=== PATIENT | male | born 1940 | race Caucasian/White ===

== ENCOUNTER → 2017-02-06 | Outpatient (CLI) | payer MEDICARE, OTHER ==
[~2017-02-06] MED LIST: ALBUTEROL SULF 2.5 MG/0.5ML(0.5%) NEB SOLN ONE; AMLO10TA2; ATOR40TA52; BENA20TA4; BETA0.0534; CARV3.1240; CLOP75TA41
== END | disposition home or self-care (01) ==
LOC: RT 08:32
PROVIDERS: ATTEND Internal Medicine Pulmonary Disease
DX: J84.112 Idiopathic pulmonary fibrosis (principal)
CPT/HCPCS: 94060

== ENCOUNTER → 2017-02-12 | Outpatient (CLI) | payer MEDICARE, OTHER ==
[~2017-02-12] MED LIST changes: -ALBUTEROL SULF 2.5 MG/0.5ML(0.5%) NEB SOLN ONE
[2017-02-12 17:14] LABS: Albumin 3.4 g/dL (3.4-5.0); Bilirubin, Direct 0.1 mg/dL (0-0.2); Bilirubin, Total 0.3 mg/dL (0.2-1.0); Total Protein 7.6 g/dL (6.4-8.2)
== END | disposition home or self-care (01) ==
LOC: LAB 16:33
PROVIDERS: ATTEND Internal Medicine Pulmonary Disease
DX: J84.112 Idiopathic pulmonary fibrosis (principal)
CPT/HCPCS: 36415; 80076

== ENCOUNTER 2017-08-03 10:44 | Inpatient (IN) | payer MEDICARE, OTHER ==
[~2017-08-03] VITALS: Ht 182.9 cm; Wt 88.9 kg
[~2017-08-03 10:44] MED LIST changes: +BENA20TA14; -BENA20TA4
[2017-08-03 11:35] LABS: Basophils # (auto) 0 uL; Basophils % (auto) 0.2 % (0.0-2.0); CONDITION Y; Eosinophils # (auto) 0.2 uL; Eosinophils % (auto) 1.9 % (0.0-7.0); Hemoglobin 16.8 g/dL (13.5-17.5); Lymphocytes % (auto) 11.7 % (10.0-50.0); Mean Corpuscular Hemoglobin 32.2 pg (28.0-32.0); Mean Corpuscular Hgb Conc. 34.2 g/dL (32.0-36.0); Mean Corpuscular Volume 94.1 fL (80.0-100.0); Mean Platelet Volume 7.9 fL (6.9-10.8); Monocytes # (auto) 0.7 uL; Neutrophils # (auto) 6.8 uL; Neutrophils % (auto) 78.2 % (37.0-80.0); Platelet Count (auto) 197 10^3/uL (140-450); Red Cell Distribution Width 14.8 % (11.8-14.3); White Blood Cell 8.7 10^3/uL (4.4-10.8)
[2017-08-03 11:50] LABS: Albumin 3.1 g/dL (3.4-5.0); BUN/Creatinine Ratio 18.7; Bilirubin, Total 0.6 mg/dL (0.2-1.0); Calcium 8.8 mg/dL (8.5-10.1); Potassium 4.1 mmol/L (3.5-5.1); Total Protein 8.2 g/dL (6.4-8.2)
[2017-08-03] MEDS ORDERED: SODIUM CHLORIDE 0.9% 1,000 ML IVB ONE (15:05)
[2017-08-03] MEDS ORDERED: cefTRIAXone 1GM/50ML D5W 50 ML IV ONE (15:15)
[2017-08-03 15:40] LABS: INR 0.98 (0.9-1.15); Partial Thromboplastin Time 26.8 sec (22.64-33.71); Prothrombin Time 10.7 sec (9.37-12.3)
[2017-08-03 17:06] LABS: Urine RBC None Seen /hpf (0 - 3)
[2017-08-03 17:35] LABS: Urine Bilirubin Negative (Negative); Urine Blood Negative /uL (Negative); Urine Color Yellow (Yellow); Urine Glucose Normal (Normal); Urine Ketone 1+ (Negative); Urine Mucus FEW (None Seen); Urine Nitrite Negative (Negative); Urine Urobilinogen Normal (Negative); Urine pH 6.5 (5.0-8.0)
[2017-08-03] MEDS ORDERED: AZITHROMYCIN 500MG/D5W 250ML 250 ML IV ONE (19:30)
[2017-08-03] MEDS ORDERED: DOCUSATE SOD 100 MG CAP PO PRN (19:45)
[2017-08-03] MEDS ORDERED: ONDANSETRON HCL 4 MG/2 ML VIAL IV PRN (19:45)
[2017-08-03] MEDS ORDERED: TEMAZEPAM 15 MG CAP PO PRN (19:45)
[2017-08-03] MEDS ORDERED: DEXTROSE (50%) 50ML SYRG IV PRN (19:45)
[2017-08-03] MEDS ORDERED: ACETAMINOPHEN 325 MG TAB PO PRN (19:45)
[2017-08-03] MEDS ORDERED: MORPHINE SULF INJ 2 MG/ML SYRINGE 1ML IV PRN (19:45)
[2017-08-03] MEDS ORDERED: HYDROcodone-ACET 5/325MG TAB PO PRN (19:45)
[2017-08-03] MEDS ORDERED: ALBUTEROL SULF 2.5 MG/0.5ML(0.5%) NEB SOLN NEB PRN (20:00)
[2017-08-03 20:47] LABS: B-Type Natriuretic Peptide 33.6 pg/mL (0-100); Temperature: 22.5 C (20.0-25.0)
[2017-08-03 21:45] VITALS: BP 153/81
[2017-08-03] MEDS: ACCU-CHEK COMFORT CURVE STRIP VI SCH (22:00)
[2017-08-03] MEDS: InsuLIN REG 1unit/0.01ml Soln (100units/ml) SC SCH (22:00)
[2017-08-03] MEDS ORDERED: PATIENTS OWN MEDICATION PO SCH ×2 (22:00)
[2017-08-03] MEDS ORDERED: ATORVASTATIN 20 MG TAB PO SCH (22:00)
[2017-08-03] MEDS: SODIUM CHLOR 0.9% PF (SALINE LOCK) 10ML VIAL IV SCH (22:29)
[2017-08-03] MEDS: GABAPENTIN 300 MG CAP PO SCH (22:30)
[2017-08-03] MEDS: CARVEDILOL 3.125 MG TAB PO SCH (22:30)
[2017-08-03] MEDS ORDERED: AMLO5TAB2 PO (23:10)
[2017-08-03] MEDS ORDERED: BENA20TA14 PO (23:10)
[2017-08-03] MEDS ORDERED: ASPI325T25 PO (23:10)
[2017-08-03] MEDS ORDERED: GABA-497 PO (23:10)
[2017-08-03] MEDS ORDERED: [UNRECOGNIZED DRUG - CODE] PO (23:10)
[2017-08-03] MEDS ORDERED: CARV3.1240 PO (23:10)
[2017-08-03] MEDS ORDERED: ATOR40TA52 PO (23:10)
[2017-08-03 23:19] VITALS: BP 153/81
[2017-08-04 04:53] VITALS: BP 110/60
[2017-08-04] MEDS ORDERED: MORPHINE SULF INJ 2 MG/ML SYRINGE 1ML IV PRN (05:30)
[2017-08-04] MEDS: SODIUM CHLOR 0.9% PF (SALINE LOCK) 10ML VIAL IV SCH (05:38)
[2017-08-04] MEDS: GABAPENTIN 300 MG CAP PO SCH (05:39)
[2017-08-04 05:48] LABS: Basophils # (auto) 0 uL; Basophils % (auto) 0.3 % (0.0-2.0); CONDITION Y; Eosinophils # (auto) 0.3 uL; Eosinophils % (auto) 3.3 % (0.0-7.0); Hematocrit 42.5 % (41.0-53.0); Hemoglobin 14.6 g/dL (13.5-17.5); Lymphocytes # (auto) 1.7 uL; Lymphocytes % (auto) 17.8 % (10.0-50.0); Mean Corpuscular Hemoglobin 32.5 pg (28.0-32.0); Mean Corpuscular Hgb Conc. 34.4 g/dL (32.0-36.0); Mean Corpuscular Volume 94.6 fL (80.0-100.0); Mean Platelet Volume 8.1 fL (6.9-10.8); Monocytes # (auto) 1.1 uL; Monocytes % (auto) 11.7 % (0.0-12.0); Neutrophils # (auto) 6.5 uL; Neutrophils % (auto) 66.9 % (37.0-80.0); Platelet Count (auto) 177 10^3/uL (140-450); Red Cell Distribution Width 14.6 % (11.8-14.3); White Blood Cell 9.7 10^3/uL (4.4-10.8)
[2017-08-04] MEDS ORDERED: PIRFENIDONE 267 MG PO SCH ×2 (06:00→14:00)
[2017-08-04] MEDS: InsuLIN REG 1unit/0.01ml Soln (100units/ml) SC SCH (06:21)
[2017-08-04] MEDS: ACCU-CHEK COMFORT CURVE STRIP VI SCH (06:21)
[2017-08-04 06:24] LABS: Albumin 2.6 g/dL (3.4-5.0); BUN/Creatinine Ratio 29.4; Bilirubin, Total 0.6 mg/dL (0.2-1.0); Calcium 8.4 mg/dL (8.5-10.1); Total Protein 6.9 g/dL (6.4-8.2)
[2017-08-04] MEDS ORDERED: Boost Glucose Control 8 Ounces PO SCH (08:00)
[2017-08-04 09:00] VITALS: BP_SYST 125; BP_SYST 139; BP_DIAS 75; BP_DIAS 78
[2017-08-04] MEDS ORDERED: cefTRIAXone 1GM/50ML D5W 50 ML IV SCH (09:00)
[2017-08-04] MEDS ORDERED: ASPirin-EC 325mg tab PO SCH (10:00)
[2017-08-04] MEDS ORDERED: AZITHROMYCIN 500MG/D5W 250ML 250 ML IV SCH (10:00)
[2017-08-04] MEDS ORDERED: amLODIPine BESYLATE 5 MG TAB PO SCH (10:00)
[2017-08-04] MEDS ORDERED: BENAZEPRIL HCL 10 MG TAB PO SCH (10:00)
[2017-08-04] MEDS ORDERED: MULTIPLE VITAMIN TAB PO SCH (10:00)
[2017-08-04] MEDS: CARVEDILOL 3.125 MG TAB PO SCH (10:26)
[2017-08-04] MEDS ORDERED: AZITHROMYCIN 250 MG TAB PO ONE (11:15)
== END 2017-08-04 13:30 | disposition home or self-care (01) | DRG 871 ==
LOC: ER 10:44 → OVERFLOW 10:45 → EAST 21:56
PROVIDERS: ADMIT Internal Medicine; ATTEND Internal Medicine
DX: A41.9 Sepsis, unspecified organism (principal); J18.9 Pneumonia, unspecified organism; E44.0 Moderate protein-calorie malnutrition; E11.65 Type 2 diabetes mellitus with hyperglycemia; J84.10 Pulmonary fibrosis, unspecified; J98.11 Atelectasis; Z68.26 Body mass index [BMI] 26.0-26.9, adult; I10 Essential (primary) hypertension; M19.90 Unspecified osteoarthritis, unspecified site; F17.200 Nicotine dependence, unspecified, uncomplicated; E78.5 Hyperlipidemia, unspecified; Z90.49 Acquired absence of other specified parts of digestive tract; Z88.5 Allergy status to narcotic agent
CPT/HCPCS: 36415; 71020; 80053; 81001; 82962; 83036; 83605; 83735; 83880; 84443; 84484; 85025; 85610; 85730; 87040; 93005; 94640; 94761; 96365; 96366; 96375; J0696

== ENCOUNTER → 2017-08-13 | Outpatient (CLI) | payer MEDICARE, OTHER ==
[~2017-08-13] MED LIST changes: +ALBUTEROL SULF 2.5 MG/0.5ML(0.5%) NEB SOLN ONE; -AMLO10TA2; +AMLO5TAB2 PO; +ASPI325T25 PO; -ATOR40TA52; +ATOR40TA52 PO; -BENA20TA14; +BENA20TA14 PO; -BETA0.0534; -CARV3.1240; +CARV3.1240 PO; -CLOP75TA41; +GABA-497 PO; +[UNRECOGNIZED DRUG - CODE] PO
== END | disposition home or self-care (01) ==
LOC: RT 08:30
PROVIDERS: ATTEND Internal Medicine Pulmonary Disease
DX: J84.112 Idiopathic pulmonary fibrosis (principal)
CPT/HCPCS: 94060

== ENCOUNTER → 2017-10-15 | Outpatient (CLI) | payer MEDICARE ==
[~2017-10-15] MED LIST changes: -ALBUTEROL SULF 2.5 MG/0.5ML(0.5%) NEB SOLN ONE
[2017-10-15 16:18] LABS: Albumin 3.5 g/dL (3.4-5.0); Bilirubin, Direct 0.1 mg/dL (0-0.2); Bilirubin, Total 0.3 mg/dL (0.2-1.0)
== END | disposition home or self-care (01) ==
LOC: LAB 15:19
PROVIDERS: ATTEND Internal Medicine Pulmonary Disease
DX: J84.112 Idiopathic pulmonary fibrosis (principal)
CPT/HCPCS: 36415; 80076

== ENCOUNTER → 2017-11-27 | Outpatient (CLI) | payer MEDICARE ==
[~2017-11-27] MED LIST changes: -GABA-497 PO; +GABA300C10 PO
[2017-11-27 16:56] LABS: Albumin 3.6 g/dL (3.4-5.0); Bilirubin, Direct 0.3 mg/dL (0-0.2); Bilirubin, Total 0.6 mg/dL (0.2-1.0); Total Protein 8.3 g/dL (6.4-8.2)
== END | disposition home or self-care (01) ==
LOC: LAB 15:58
PROVIDERS: ATTEND Internal Medicine Pulmonary Disease
DX: J84.10 Pulmonary fibrosis, unspecified (principal)
CPT/HCPCS: 36415; 80076

== ENCOUNTER → 2018-02-20 | Outpatient (CLI) | payer MEDICARE | END | disposition home or self-care (01) | LOC: LAB 15:19 | PROVIDERS: ATTEND Internal Medicine Pulmonary Disease | DX: J84.112 Idiopathic pulmonary fibrosis (principal); E11.9 Type 2 diabetes mellitus without complications; I10 Essential (primary) hypertension; M06.9 Rheumatoid arthritis, unspecified; E78.5 Hyperlipidemia, unspecified; Z79.899 Other long term (current) drug therapy | CPT/HCPCS: 36415 ==

== ENCOUNTER → 2018-02-25 | Outpatient (CLI) | payer MEDICARE ==
[2018-02-25 14:20] LABS: Albumin 3.3 g/dL (3.4-5.0); Bilirubin, Direct 0.2 mg/dL (0-0.2); Bilirubin, Total 0.5 mg/dL (0.2-1.0); Total Protein 8.1 g/dL (6.4-8.2)
== END | disposition home or self-care (01) ==
LOC: LAB 13:45
PROVIDERS: ATTEND Internal Medicine Pulmonary Disease
DX: J84.112 Idiopathic pulmonary fibrosis (principal); I10 Essential (primary) hypertension; E78.5 Hyperlipidemia, unspecified; E11.9 Type 2 diabetes mellitus without complications; M06.9 Rheumatoid arthritis, unspecified; Z79.899 Other long term (current) drug therapy
CPT/HCPCS: 36415; 80076

== ENCOUNTER → 2018-03-23 | Outpatient (CLI) | payer MEDICARE ==
[~2018-03-23] MED LIST changes: +ALBUTEROL SULF 2.5 MG/0.5ML(0.5%) NEB SOLN ONE
== END | disposition home or self-care (01) ==
LOC: RT 08:34
PROVIDERS: ATTEND Internal Medicine Pulmonary Disease
DX: J84.112 Idiopathic pulmonary fibrosis (principal); I10 Essential (primary) hypertension; E78.5 Hyperlipidemia, unspecified; M06.9 Rheumatoid arthritis, unspecified; E11.9 Type 2 diabetes mellitus without complications; Z79.899 Other long term (current) drug therapy
CPT/HCPCS: 94060; 94640

== ENCOUNTER → 2018-09-17 | Outpatient (CLI) | payer MEDICARE ==
[~2018-09-17] MED LIST changes: +AMLO5TAB13 PO; -AMLO5TAB2 PO
== END | disposition home or self-care (01) ==
LOC: RT 08:25
PROVIDERS: ATTEND Internal Medicine Pulmonary Disease
DX: J84.112 Idiopathic pulmonary fibrosis (principal)
CPT/HCPCS: 94060; J7611

== ENCOUNTER → 2019-04-23 | Outpatient (CLI) | payer MEDICARE | END | disposition home or self-care (01) | LOC: RT 08:01 | PROVIDERS: ATTEND Internal Medicine Pulmonary Disease | DX: J84.112 Idiopathic pulmonary fibrosis (principal) | CPT/HCPCS: 94060; J7611 ==

== ENCOUNTER 2020-02-18 10:43 | Inpatient (IN) | payer MEDICARE, SELFPAY ==
[~2020-02-18] VITALS: Ht 182.9 cm; Wt 96.5 kg
[~2020-02-18 10:43] MED LIST changes: -ALBUTEROL SULF 2.5 MG/0.5ML(0.5%) NEB SOLN ONE; -AMLO5TAB13 PO; +AMLO5TAB15 PO
[2020-02-18 11:14] LABS: Basophils # (auto) 0 10 ^3/uL (0-0.2); Basophils % (auto) 0.3 % (0.0-2.0); Eosinophils # (auto) 0.1 10 ^3/uL (0-0.8); Eosinophils % (auto) 1.3 % (0.0-7.0); Hematocrit 43.4 % (41.0-53.0); Lymphocytes # (auto) 0.8 10 ^3/uL (0.4-5.4); Lymphocytes % (auto) 9.2 % (10.0-50.0); Mean Corpuscular Hemoglobin 32.8 pg (28.0-32.0); Mean Corpuscular Hgb Conc. 34.5 g/dL (32.0-36.0); Mean Corpuscular Volume 95.2 fL (80.0-100.0); Monocytes # (auto) 0.9 10 ^3/uL (0-1.3); Monocytes % (auto) 10.3 % (0.0-12.0); Neutrophils # (auto) 6.7 10 ^3/uL (1.6-8.6); Neutrophils % (auto) 78.9 % (37.0-80.0); Nucleated Red Blood Cells % 0.2 %; Platelet Count (auto) 150 10^3/uL (140-450); Red Blood Cells 4.56 10^6/uL (4.5-5.90); Red Cell Distribution Width 15.8 % (11.8-14.3); White Blood Cell 8.5 10^3/uL (4.4-10.8)
[2020-02-18] MEDS ORDERED: levoFLOXacin 500MG 100 ML IV ONE (11:15)
[2020-02-18 11:34] LABS: Albumin 3.1 g/dL (3.4-5.0); Calcium 9.1 mg/dL (8.5-10.1); Potassium 3.4 mmol/L (3.5-5.1)
[2020-02-18 11:41] LABS: BUN/Creatinine Ratio 23.2; Bilirubin, Total 0.8 mg/dL (0.2-1.0); Total Protein 8.2 g/dL (6.4-8.2)
[2020-02-18 12:11] LABS: Lactic Acid w/Reflex 2.5 mmol/L (0.4-2.0)
[2020-02-18] MEDS ORDERED: ACETAMINOPHEN 500 MG TAB PO PRN (13:30)
[2020-02-18] MEDS ORDERED: VANCOMYCIN PER PHARMACY 0 MG IV SCH (13:30)
[2020-02-18] MEDS ORDERED: ONDANSETRON HCL 4 MG/2 ML VIAL IV PRN (13:30)
[2020-02-18] MEDS ORDERED: HYDROcodone-ACET 5/325MG TAB PO PRN ×2 (13:30→14:15)
[2020-02-18] MEDS ORDERED: NITROGLYCERIN 0.4 MG SL TAB SL PRN (13:30)
[2020-02-18] MEDS ORDERED: FUROSEMIDE 20 MG/2 ML VIAL IV SCH (13:30)
[2020-02-18] MEDS ORDERED: MORPHINE SULF INJ 2 MG/ML SYRINGE 1ML IV PRN ×4 (13:30→14:15)
[2020-02-18] MEDS ORDERED: FUROSEMIDE 100 MG/10ML VIAL IV SCH (14:00)
[2020-02-18] MEDS ORDERED: FUROSEMIDE 100 MG/10ML VIAL IV ONE (14:15)
[2020-02-18 14:37] LABS: CRP High Sensitivity 4.57 mg/dL (< 0.3)
[2020-02-18] MEDS ORDERED: AMLO5TAB15 PO (15:55)
[2020-02-18] MEDS ORDERED: ATOR40TA52 PO (15:55)
[2020-02-18] MEDS ORDERED: METO-169 PO (15:55)
[2020-02-18] MEDS ORDERED: TAMS0.4C36 PO (15:55)
[2020-02-18] MEDS ORDERED: NINT1CAP2 PO (15:55)
[2020-02-18] MEDS ORDERED: POTA10TA51 PO (15:55)
[2020-02-18] MEDS ORDERED: HCTZ25T PO (15:55)
[2020-02-18] MEDS ORDERED: FURO20TA3 PO (15:55)
[2020-02-18] MEDS ORDERED: CHOL20007 PO (15:55)
[2020-02-18] MEDS ORDERED: ALBU1AER4 IN (15:55)
[2020-02-18] MEDS ORDERED: APIX5TAB PO (15:55)
[2020-02-18] MEDS: VANCOMYCIN 1GM/250ML 250 ML IV SCH (16:34)
[2020-02-18] MEDS: PIPERACILLIN-TAZOB 3.375GM 100 ML IV SCH (17:40)
[2020-02-18 20:00] VITALS: BP 126/69
[2020-02-18 20:30] VITALS: BP 126/69
[2020-02-18] MEDS ORDERED: TEMAZEPAM 15 MG CAP PO ONE (21:15)
[2020-02-19] MEDS: PIPERACILLIN-TAZOB 3.375GM 100 ML IV SCH ×4 (00:48→21:40)
[2020-02-19] MEDS: VANCOMYCIN 1GM/250ML 250 ML IV SCH ×2 (05:02→18:28)
[2020-02-19 06:00] VITALS: BP 110/50
[2020-02-19 06:58] LABS: Basophils # (auto) 0 10 ^3/uL (0-0.2); Basophils % (auto) 0.3 % (0.0-2.0); Eosinophils # (auto) 0.2 10 ^3/uL (0-0.8); Eosinophils % (auto) 3.2 % (0.0-7.0); Hematocrit 38.2 % (41.0-53.0); Hemoglobin 13.1 g/dL (13.5-17.5); Lymphocytes % (auto) 12.6 % (10.0-50.0); Mean Corpuscular Hemoglobin 32.9 pg (28.0-32.0); Mean Corpuscular Hgb Conc. 34.2 g/dL (32.0-36.0); Mean Corpuscular Volume 96.3 fL (80.0-100.0); Monocytes # (auto) 0.9 10 ^3/uL (0-1.3); Monocytes % (auto) 11.9 % (0.0-12.0); Neutrophils # (auto) 5.6 10 ^3/uL (1.6-8.6); Platelet Count (auto) 127 10^3/uL (140-450); Red Blood Cells 3.97 10^6/uL (4.5-5.90); Red Cell Distribution Width 15.7 % (11.8-14.3); White Blood Cell 7.8 10^3/uL (4.4-10.8)
[2020-02-19 07:25] LABS: BUN/Creatinine Ratio 18.9; Calcium 8.6 mg/dL (8.5-10.1); Potassium 3.3 mmol/L (3.5-5.1)
[2020-02-19 07:45] VITALS: BP 113/60
[2020-02-19 08:00] VITALS: BP 113/62
[2020-02-19] MEDS: CHOLECALCIFEROL (VITD3) 1,000IU=25mCg TAB PO SCH (09:12)
[2020-02-19] MEDS: ZINC SULFATE 220mg CAP or TAB PO SCH (09:12)
[2020-02-19] MEDS: FAMOTIDINE 20 MG TAB PO SCH (09:12)
[2020-02-19] MEDS ORDERED: AZITHROMYCIN 500MG/ 250ML 250 ML IV SCH (10:00)
[2020-02-19] MEDS ORDERED: ASCORBIC ACID 500 MG TAB PO SCH (10:00)
[2020-02-19] MEDS ORDERED: POTASSIUM CHL 20 Meq TABLET PO ONE ×2 (11:30)
[2020-02-19] MEDS ORDERED: FUROSEMIDE 20 MG/2 ML VIAL IV ONE (11:30)
[2020-02-19 12:00] VITALS: BP 126/63
[2020-02-19] MEDS: ASPirin-EC 81 mg tab PO SCH (12:26)
[2020-02-19] MEDS: ALBUTEROL SULF HFA 90MCG INH 200DOSE IN SCH ×2 (14:14→21:40)
[2020-02-19] MEDS: ENOXAPARIN SOD 40 MG/0.4 ML SYRINGE SC SCH (14:44)
[2020-02-19 15:00] VITALS: BP 126/63
[2020-02-19] MEDS ORDERED: FUROSEMIDE 40 MG/4 ML VIAL IV ONE (15:00)
[2020-02-19] MEDS: ATORVASTATIN 20 MG TAB PO SCH (21:40)
[2020-02-19] MEDS: METOPROLOL TARTRATE 25 MG TAB PO SCH (21:41)
[2020-02-19 21:43] VITALS: BP 112/63
[2020-02-20] VITALS (14 sets, daily range): BP systolic 114–140; BP diastolic 53–66
[2020-02-20] MEDS: PIPERACILLIN-TAZOB 3.375GM 100 ML IV SCH ×4 (01:58→21:39)
[2020-02-20] MEDS: ALBUTEROL SULF HFA 90MCG INH 200DOSE IN SCH (06:05)
[2020-02-20 06:32] LABS: Basophils # (auto) 0 10 ^3/uL (0-0.2); Basophils % (auto) 0.5 % (0.0-2.0); Eosinophils # (auto) 0.3 10 ^3/uL (0-0.8); Hematocrit 37.8 % (41.0-53.0); Hemoglobin 12.8 g/dL (13.5-17.5); Lymphocytes # (auto) 0.7 10 ^3/uL (0.4-5.4); Lymphocytes % (auto) 9.5 % (10.0-50.0); Mean Corpuscular Volume 96.9 fL (80.0-100.0); Monocytes % (auto) 13.5 % (0.0-12.0); Neutrophils # (auto) 5.3 10 ^3/uL (1.6-8.6); Neutrophils % (auto) 72.5 % (37.0-80.0); Nucleated Red Blood Cells % 0.1 %; Platelet Count (auto) 116 10^3/uL (140-450); White Blood Cell 7.3 10^3/uL (4.4-10.8)
[2020-02-20 06:52] LABS: Potassium 3.6 mmol/L (3.5-5.1)
[2020-02-20 07:08] LABS: Potassium 3.6 mmol/L (3.5-5.1)
[2020-02-20 07:40] LABS: INR 1.08 (0.9-1.15)
[2020-02-20 08:00] LABS: Bilirubin, Total 1.2 mg/dL (0.2-1.0)
[2020-02-20 08:01] LABS: Albumin 2.5 g/dL (3.4-5.0); BUN/Creatinine Ratio 18.6; Calcium 8.6 mg/dL (8.5-10.1)
[2020-02-20 08:03] LABS: Magnesium 2.1 mg/dL (1.6-2.6)
[2020-02-20] MEDS: FAMOTIDINE 20 MG TAB PO SCH (09:42)
[2020-02-20] MEDS: VANCOMYCIN 1GM/250ML 250 ML IV SCH ×2 (09:42→20:00)
[2020-02-20] MEDS: POTASSIUM CHL 20 Meq TABLET PO SCH (09:42)
[2020-02-20] MEDS: ASPirin-EC 81 mg tab PO SCH (09:42)
[2020-02-20] MEDS: ZINC SULFATE 220mg CAP or TAB PO SCH (09:42)
[2020-02-20] MEDS: METOPROLOL TARTRATE 25 MG TAB PO SCH ×2 (09:43→21:45)
[2020-02-20] MEDS: ENOXAPARIN SOD 40 MG/0.4 ML SYRINGE SC SCH (09:43)
[2020-02-20] MEDS: CHOLECALCIFEROL (VITD3) 1,000IU=25mCg TAB PO SCH (09:43)
[2020-02-20] MEDS ORDERED: FUROSEMIDE 40 MG/4 ML VIAL IV SCH (10:00)
[2020-02-20] MEDS ORDERED: FUROSEMIDE 20 MG/2 ML VIAL IV SCH (10:00)
[2020-02-20] MEDS ORDERED: ASCORBIC ACID 500 MG TAB PO SCH (10:00)
[2020-02-20] MEDS ORDERED: ALBUTEROL SULF 2.5 MG/0.5ML(0.5%) NEB SOLN NEB PRN (14:45)
[2020-02-20] MEDS ORDERED: IPRATROPIUM BROM 0.5 MG/2.5ML INH SOL NEB PRN (14:45)
[2020-02-20] MEDS: ALBUTEROL SULF 2.5 MG/0.5ML(0.5%) NEB SOLN NEB SCH ×3 (15:15→22:40)
[2020-02-20] MEDS: IPRATROPIUM BROM 0.5 MG/2.5ML INH SOL NEB SCH ×3 (15:15→22:40)
[2020-02-20] MEDS: TAMSULOSIN HYDROCHLORIDE 0.4 MG CAP PO SCH (18:36)
[2020-02-20] MEDS: FUROSEMIDE 40 MG/4 ML VIAL IV SCH (21:43)
[2020-02-20] MEDS: methylPREDNISolone SOD SUCC 125 MG/2 ML VL IV SCH (21:43)
[2020-02-20] MEDS: ATORVASTATIN 20 MG TAB PO SCH (21:44)
[2020-02-21] VITALS (25 sets, daily range): BP systolic 92–120; BP diastolic 35–64
[2020-02-21] MEDS: PIPERACILLIN-TAZOB 3.375GM 100 ML IV SCH ×4 (01:35→20:00)
[2020-02-21] MEDS: IPRATROPIUM BROM 0.5 MG/2.5ML INH SOL NEB SCH ×6 (02:29→22:08)
[2020-02-21] MEDS: ALBUTEROL SULF 2.5 MG/0.5ML(0.5%) NEB SOLN NEB SCH ×6 (02:29→22:08)
[2020-02-21 03:44] LABS: Basophils # (auto) 0 10 ^3/uL (0-0.2); Basophils % (auto) 0.1 % (0.0-2.0); Eosinophils # (auto) 0 10 ^3/uL (0-0.8); Eosinophils % (auto) 0.2 % (0.0-7.0); Hematocrit 37.6 % (41.0-53.0); Hemoglobin 12.7 g/dL (13.5-17.5); Lymphocytes # (auto) 0.3 10 ^3/uL (0.4-5.4); Lymphocytes % (auto) 5.2 % (10.0-50.0); Mean Corpuscular Hemoglobin 32.8 pg (28.0-32.0); Mean Corpuscular Hgb Conc. 33.8 g/dL (32.0-36.0); Monocytes # (auto) 0.1 10 ^3/uL (0-1.3); Monocytes % (auto) 1.8 % (0.0-12.0); Neutrophils # (auto) 5.9 10 ^3/uL (1.6-8.6); Neutrophils % (auto) 92.7 % (37.0-80.0); Platelet Count (auto) 124 10^3/uL (140-450); Red Blood Cells 3.88 10^6/uL (4.5-5.90); Red Cell Distribution Width 15.9 % (11.8-14.3); White Blood Cell 6.4 10^3/uL (4.4-10.8)
[2020-02-21 04:00] LABS: INR 1.13 (0.9-1.15); Partial Thromboplastin Time 32.1 sec (23.64-32.05)
[2020-02-21 04:03] LABS: BUN/Creatinine Ratio 15.5; Calcium 8.9 mg/dL (8.5-10.1); Magnesium 2.5 mg/dL (1.6-2.6); Potassium 3.7 mmol/L (3.5-5.1)
[2020-02-21 04:54] LABS: Urine WBC None Seen /hpf (0 - 3)
[2020-02-21 05:00] LABS: Urine Bacteria NONE SEEN /hpf (None Seen); Urine Blood Negative /uL (Negative)
[2020-02-21] MEDS: methylPREDNISolone SOD SUCC 125 MG/2 ML VL IV SCH ×3 (06:10→22:17)
[2020-02-21] MEDS: VANCOMYCIN 1GM/250ML 250 ML IV SCH ×2 (06:10→16:15)
[2020-02-21] MEDS ORDERED: IOHEXOL 350 MG/ML 100ML IJ ONE ×2 (07:54→12:21)
[2020-02-21] MEDS ORDERED: LIDOCAINE 2%HCL (LOCAL ANESTH.) INJ 20ML MDV ONE ×2 (07:55→12:21)
[2020-02-21] MEDS ORDERED: HEPARIN IN NS 1000Units/500mL 0 ML ONE (07:55)
[2020-02-21] MEDS: ASPirin-EC 81 mg tab PO SCH (09:41)
[2020-02-21] MEDS: POTASSIUM CHL 20 Meq TABLET PO SCH ×2 (09:41→22:17)
[2020-02-21] MEDS: FUROSEMIDE 40 MG/4 ML VIAL IV SCH (09:41)
[2020-02-21] MEDS: METOPROLOL TARTRATE 25 MG TAB PO SCH ×2 (09:42→22:17)
[2020-02-21] MEDS: FAMOTIDINE 20 MG TAB PO SCH (09:42)
[2020-02-21] MEDS: ASCORBIC ACID 500 MG TAB PO SCH (10:00)
[2020-02-21] MEDS ORDERED: fentaNYL CITRATE 100 MCG/2 ML VL ONE (12:27)
[2020-02-21] MEDS ORDERED: ANGIOMAX 250 MG VIAL IV ONE (12:27)
[2020-02-21] MEDS ORDERED: MIDAZOLAM HCL 1MG/1ML-2 ML VIAL ONE (12:28)
[2020-02-21] MEDS ORDERED: SODIUM CHL 0.9% 0 ML ONE (12:28)
[2020-02-21] MEDS: SILDENAFIL CITRATE 20 MG TAB PO SCH ×2 (14:09→20:00)
[2020-02-21] MEDS: ENOXAPARIN SOD 40 MG/0.4 ML SYRINGE SC SCH (14:15)
[2020-02-21] MEDS ORDERED: FLUCONAZOLE 200MG/100ML 100 ML IV ONE (14:15)
[2020-02-21] MEDS: TAMSULOSIN HYDROCHLORIDE 0.4 MG CAP PO SCH (17:54)
[2020-02-21] MEDS: FUROSEMIDE 20 MG/2 ML VIAL IV SCH (17:54)
[2020-02-21] MEDS: ATORVASTATIN 20 MG TAB PO SCH (22:17)
[2020-02-22] MEDS ORDERED: ALBUMIN 5% 250 ML IV ONE (01:00)
[2020-02-22] MEDS: VANCOMYCIN 1GM/250ML 250 ML IV SCH ×2 (02:14→12:06)
[2020-02-22] MEDS: ALBUTEROL SULF 2.5 MG/0.5ML(0.5%) NEB SOLN NEB SCH ×6 (02:36→21:40)
[2020-02-22] MEDS: IPRATROPIUM BROM 0.5 MG/2.5ML INH SOL NEB SCH ×6 (02:36→21:40)
[2020-02-22] MEDS: LORazepam 2MG/ML-1ML VIAL IV PRN (03:16)
[2020-02-22] MEDS: PIPERACILLIN-TAZOB 3.375GM 100 ML IV SCH ×4 (03:21→20:50)
[2020-02-22 05:08] VITALS: BP 115/51
[2020-02-22] MEDS: FUROSEMIDE 20 MG/2 ML VIAL IV SCH ×2 (05:47→17:44)
[2020-02-22] MEDS: methylPREDNISolone SOD SUCC 125 MG/2 ML VL IV SCH ×3 (05:47→22:11)
[2020-02-22 05:50] LABS: Calcium 8.9 mg/dL (8.5-10.1)
[2020-02-22 05:52] LABS: BUN/Creatinine Ratio 26.6
[2020-02-22 09:00] VITALS: BP 119/63
[2020-02-22] MEDS: SILDENAFIL CITRATE 20 MG TAB PO SCH ×3 (09:01→20:50)
[2020-02-22 09:13] VITALS: BP 110/53
[2020-02-22] MEDS: FLUCONAZOLE 200MG/100ML 100 ML IV SCH (11:12)
[2020-02-22] MEDS: METOPROLOL TARTRATE 25 MG TAB PO SCH ×2 (11:12→22:12)
[2020-02-22] MEDS: ASPirin-EC 81 mg tab PO SCH (11:12)
[2020-02-22] MEDS: POTASSIUM CHL 20 Meq TABLET PO SCH ×2 (11:13→22:11)
[2020-02-22] MEDS: FAMOTIDINE 20 MG TAB PO SCH (11:13)
[2020-02-22] MEDS: ASCORBIC ACID 500 MG TAB PO SCH (11:14)
[2020-02-22] MEDS: ENOXAPARIN SOD 40 MG/0.4 ML SYRINGE SC SCH (11:15)
[2020-02-22 13:00] VITALS: BP 112/64
[2020-02-22 17:00] VITALS: BP 116/65
[2020-02-22] MEDS: TAMSULOSIN HYDROCHLORIDE 0.4 MG CAP PO SCH (17:44)
[2020-02-22 22:00] VITALS: BP 115/54
[2020-02-22] MEDS: ATORVASTATIN 20 MG TAB PO SCH (22:11)
[2020-02-22] MEDS: TEMAZEPAM 15 MG CAP PO PRN (22:24)
[2020-02-23] MEDS: ALBUTEROL SULF 2.5 MG/0.5ML(0.5%) NEB SOLN NEB SCH ×6 (01:51→22:20)
[2020-02-23] MEDS: IPRATROPIUM BROM 0.5 MG/2.5ML INH SOL NEB SCH ×6 (01:51→22:20)
[2020-02-23] MEDS: PIPERACILLIN-TAZOB 3.375GM 100 ML IV SCH ×4 (02:16→19:37)
[2020-02-23 05:00] VITALS: BP 125/66
[2020-02-23] MEDS: FUROSEMIDE 20 MG/2 ML VIAL IV SCH ×2 (05:45→17:38)
[2020-02-23] MEDS: methylPREDNISolone SOD SUCC 125 MG/2 ML VL IV SCH ×3 (05:45→21:53)
[2020-02-23 06:04] LABS: Potassium 4.2 mmol/L (3.5-5.1)
[2020-02-23 08:00] VITALS: BP 112/50
[2020-02-23] MEDS: SILDENAFIL CITRATE 20 MG TAB PO SCH ×3 (08:49→19:37)
[2020-02-23] MEDS ORDERED: IOHEXOL 350 MG/ML 100ML IJ ONE (10:22)
[2020-02-23] MEDS: ASPirin-EC 81 mg tab PO SCH (10:31)
[2020-02-23] MEDS: FLUCONAZOLE 200MG/100ML 100 ML IV SCH (10:31)
[2020-02-23] MEDS: ASCORBIC ACID 500 MG TAB PO SCH (10:31)
[2020-02-23] MEDS: ENOXAPARIN SOD 40 MG/0.4 ML SYRINGE SC SCH (10:31)
[2020-02-23] MEDS: POTASSIUM CHL 20 Meq TABLET PO SCH ×2 (10:31→21:54)
[2020-02-23] MEDS: FAMOTIDINE 20 MG TAB PO SCH (10:32)
[2020-02-23] MEDS: METOPROLOL TARTRATE 25 MG TAB PO SCH ×2 (10:34→21:55)
[2020-02-23 12:00] VITALS: BP 109/52
[2020-02-23 12:03] LABS: Basophils # (auto) 0 10 ^3/uL (0-0.2); Basophils % (auto) 0.2 % (0.0-2.0); Eosinophils # (auto) 0 10 ^3/uL (0-0.8); Hematocrit 36.5 % (41.0-53.0); Hemoglobin 12.3 g/dL (13.5-17.5); Lymphocytes # (auto) 0.5 10 ^3/uL (0.4-5.4); Lymphocytes % (auto) 5.1 % (10.0-50.0); Mean Corpuscular Hemoglobin 32.9 pg (28.0-32.0); Mean Corpuscular Hgb Conc. 33.7 g/dL (32.0-36.0); Mean Corpuscular Volume 97.5 fL (80.0-100.0); Monocytes # (auto) 0.3 10 ^3/uL (0-1.3); Monocytes % (auto) 3.4 % (0.0-12.0); Neutrophils # (auto) 8.1 10 ^3/uL (1.6-8.6); Neutrophils % (auto) 91.3 % (37.0-80.0); Platelet Count (auto) 125 10^3/uL (140-450); Red Blood Cells 3.74 10^6/uL (4.5-5.90); Red Cell Distribution Width 16.3 % (11.8-14.3); White Blood Cell 8.9 10^3/uL (4.4-10.8)
[2020-02-23] MEDS: NINTEDANIB PO SCH (13:46)
[2020-02-23 16:59] VITALS: BP 124/72
[2020-02-23] MEDS: TAMSULOSIN HYDROCHLORIDE 0.4 MG CAP PO SCH (17:38)
[2020-02-23] MEDS: ATORVASTATIN 20 MG TAB PO SCH (21:54)
[2020-02-23] MEDS: LORazepam 2MG/ML-1ML VIAL IV PRN (21:55)
[2020-02-23 22:00] VITALS: BP 118/63
[2020-02-24] MEDS: PIPERACILLIN-TAZOB 3.375GM 100 ML IV SCH ×4 (01:54→20:45)
[2020-02-24] MEDS: IPRATROPIUM BROM 0.5 MG/2.5ML INH SOL NEB SCH ×6 (02:04→22:03)
[2020-02-24] MEDS: ALBUTEROL SULF 2.5 MG/0.5ML(0.5%) NEB SOLN NEB SCH ×6 (02:04→22:03)
[2020-02-24 05:00] VITALS: BP 114/54
[2020-02-24] MEDS: FUROSEMIDE 20 MG/2 ML VIAL IV SCH ×2 (05:54→17:54)
[2020-02-24] MEDS: methylPREDNISolone SOD SUCC 125 MG/2 ML VL IV SCH ×3 (05:55→22:08)
[2020-02-24] MEDS: SILDENAFIL CITRATE 20 MG TAB PO SCH ×3 (08:55→20:11)
[2020-02-24 08:58] VITALS: BP 136/65
[2020-02-24] MEDS: ASCORBIC ACID 500 MG TAB PO SCH (10:03)
[2020-02-24] MEDS: FAMOTIDINE 20 MG TAB PO SCH (10:03)
[2020-02-24] MEDS: ASPirin-EC 81 mg tab PO SCH (10:03)
[2020-02-24] MEDS: ENOXAPARIN SOD 40 MG/0.4 ML SYRINGE SC SCH (10:03)
[2020-02-24] MEDS: POTASSIUM CHL 20 Meq TABLET PO SCH ×2 (10:05→22:08)
[2020-02-24] MEDS: METOPROLOL TARTRATE 25 MG TAB PO SCH ×2 (10:06→22:09)
[2020-02-24 12:54] VITALS: BP 129/61
[2020-02-24 16:56] VITALS: BP 118/59
[2020-02-24] MEDS: TAMSULOSIN HYDROCHLORIDE 0.4 MG CAP PO SCH (17:54)
[2020-02-24 20:00] VITALS: BP 135/76
[2020-02-24 21:52] VITALS: BP 135/76
[2020-02-24] MEDS: ATORVASTATIN 20 MG TAB PO SCH (22:08)
[2020-02-24] MEDS: TEMAZEPAM 15 MG CAP PO PRN (22:09)
[2020-02-25] VITALS (7 sets, daily range): BP systolic 104–129; BP diastolic 48–69
[2020-02-25] MEDS: ALBUTEROL SULF 2.5 MG/0.5ML(0.5%) NEB SOLN NEB SCH ×7 (02:00→22:40)
[2020-02-25] MEDS: IPRATROPIUM BROM 0.5 MG/2.5ML INH SOL NEB SCH ×7 (02:00→22:40)
[2020-02-25] MEDS: PIPERACILLIN-TAZOB 3.375GM 100 ML IV SCH ×4 (02:05→19:53)
[2020-02-25] MEDS: methylPREDNISolone SOD SUCC 125 MG/2 ML VL IV SCH ×3 (05:57→22:43)
[2020-02-25] MEDS: FUROSEMIDE 20 MG/2 ML VIAL IV SCH ×2 (06:26→18:51)
[2020-02-25 06:27] LABS: Potassium 3.9 mmol/L (3.5-5.1)
[2020-02-25 06:32] LABS: Calcium 8.8 mg/dL (8.5-10.1)
[2020-02-25] MEDS: ASPirin-EC 81 mg tab PO SCH (09:49)
[2020-02-25] MEDS: ASCORBIC ACID 500 MG TAB PO SCH (09:49)
[2020-02-25] MEDS: SILDENAFIL CITRATE 20 MG TAB PO SCH ×3 (09:49→19:54)
[2020-02-25] MEDS: FAMOTIDINE 20 MG TAB PO SCH (09:49)
[2020-02-25] MEDS: ENOXAPARIN SOD 40 MG/0.4 ML SYRINGE SC SCH (09:50)
[2020-02-25] MEDS: POTASSIUM CHL 20 Meq TABLET PO SCH ×2 (09:50→22:43)
[2020-02-25] MEDS: NINTEDANIB PO SCH (09:51)
[2020-02-25] MEDS: METOPROLOL TARTRATE 25 MG TAB PO SCH ×2 (09:51→22:44)
[2020-02-25] MEDS: guaiFENesin 200 MG/10 ML UD PO SCH ×3 (14:02→22:44)
[2020-02-25] MEDS: TAMSULOSIN HYDROCHLORIDE 0.4 MG CAP PO SCH (18:51)
[2020-02-25] MEDS: ATORVASTATIN 20 MG TAB PO SCH (22:43)
[2020-02-25] MEDS: TEMAZEPAM 15 MG CAP PO PRN (22:44)
[2020-02-26] MEDS: PIPERACILLIN-TAZOB 3.375GM 100 ML IV SCH ×4 (01:54→19:56)
[2020-02-26] MEDS: IPRATROPIUM BROM 0.5 MG/2.5ML INH SOL NEB SCH ×6 (02:19→22:42)
[2020-02-26] MEDS: ALBUTEROL SULF 2.5 MG/0.5ML(0.5%) NEB SOLN NEB SCH ×6 (02:19→22:42)
[2020-02-26 05:00] VITALS: BP 134/67
[2020-02-26] MEDS: methylPREDNISolone SOD SUCC 125 MG/2 ML VL IV SCH ×3 (05:40→21:54)
[2020-02-26] MEDS: FUROSEMIDE 20 MG/2 ML VIAL IV SCH ×2 (05:40→18:31)
[2020-02-26 06:07] LABS: Basophils # (auto) 0 10 ^3/uL (0-0.2); Basophils % (auto) 0.1 % (0.0-2.0); Eosinophils # (auto) 0 10 ^3/uL (0-0.8); Hematocrit 37.8 % (41.0-53.0); Hemoglobin 13.2 g/dL (13.5-17.5); Lymphocytes # (auto) 0.4 10 ^3/uL (0.4-5.4); Lymphocytes % (auto) 5.4 % (10.0-50.0); Mean Corpuscular Hgb Conc. 34.8 g/dL (32.0-36.0); Monocytes # (auto) 0.3 10 ^3/uL (0-1.3); Monocytes % (auto) 3.9 % (0.0-12.0); Neutrophils # (auto) 5.9 10 ^3/uL (1.6-8.6); Neutrophils % (auto) 90.6 % (37.0-80.0); Platelet Count (auto) 118 10^3/uL (140-450); Red Blood Cells 3.99 10^6/uL (4.5-5.90); Red Cell Distribution Width 15.3 % (11.8-14.3); White Blood Cell 6.5 10^3/uL (4.4-10.8)
[2020-02-26 06:22] LABS: Potassium 3.7 mmol/L (3.5-5.1)
[2020-02-26 06:26] LABS: Calcium 8.8 mg/dL (8.5-10.1)
[2020-02-26] MEDS: SILDENAFIL CITRATE 20 MG TAB PO SCH ×3 (08:12→22:27)
[2020-02-26] MEDS: guaiFENesin 200 MG/10 ML UD PO SCH ×4 (08:13→21:52)
[2020-02-26 08:42] VITALS: BP 134/65
[2020-02-26] MEDS: ENOXAPARIN SOD 40 MG/0.4 ML SYRINGE SC SCH (10:18)
[2020-02-26] MEDS: POTASSIUM CHL 20 Meq TABLET PO SCH ×2 (10:18→21:53)
[2020-02-26] MEDS: ASCORBIC ACID 500 MG TAB PO SCH (10:19)
[2020-02-26] MEDS: FAMOTIDINE 20 MG TAB PO SCH (10:19)
[2020-02-26] MEDS: ASPirin-EC 81 mg tab PO SCH (10:19)
[2020-02-26] MEDS: METOPROLOL TARTRATE 25 MG TAB PO SCH ×2 (10:19→22:26)
[2020-02-26] MEDS: NINTEDANIB PO SCH (10:20)
[2020-02-26 12:44] VITALS: BP 142/64
[2020-02-26 17:00] VITALS: BP 135/57
[2020-02-26] MEDS: TAMSULOSIN HYDROCHLORIDE 0.4 MG CAP PO SCH (18:31)
[2020-02-26] MEDS: ATORVASTATIN 20 MG TAB PO SCH (21:53)
[2020-02-26 22:00] VITALS: BP 135/60
[2020-02-27] MEDS: ALBUTEROL SULF 2.5 MG/0.5ML(0.5%) NEB SOLN NEB SCH ×6 (01:51→22:14)
[2020-02-27] MEDS: IPRATROPIUM BROM 0.5 MG/2.5ML INH SOL NEB SCH ×6 (01:52→22:14)
[2020-02-27 05:00] VITALS: BP 142/77
[2020-02-27 05:52] LABS: Basophils # (auto) 0 10 ^3/uL (0-0.2); Basophils % (auto) 0.3 % (0.0-2.0); Eosinophils # (auto) 0 10 ^3/uL (0-0.8); Hematocrit 38.2 % (41.0-53.0); Hemoglobin 13.2 g/dL (13.5-17.5); Lymphocytes # (auto) 0.3 10 ^3/uL (0.4-5.4); Lymphocytes % (auto) 4.7 % (10.0-50.0); Mean Corpuscular Hemoglobin 32.5 pg (28.0-32.0); Mean Corpuscular Hgb Conc. 34.6 g/dL (32.0-36.0); Mean Corpuscular Volume 93.9 fL (80.0-100.0); Monocytes # (auto) 0.2 10 ^3/uL (0-1.3); Monocytes % (auto) 3.8 % (0.0-12.0); Neutrophils # (auto) 5.9 10 ^3/uL (1.6-8.6); Neutrophils % (auto) 91.2 % (37.0-80.0); Platelet Count (auto) 134 10^3/uL (140-450); Red Blood Cells 4.07 10^6/uL (4.5-5.90); Red Cell Distribution Width 15.5 % (11.8-14.3); White Blood Cell 6.5 10^3/uL (4.4-10.8)
[2020-02-27] MEDS: PIPERACILLIN-TAZOB 3.375GM 100 ML IV SCH ×4 (06:06→19:59)
[2020-02-27] MEDS: methylPREDNISolone SOD SUCC 125 MG/2 ML VL IV SCH ×3 (06:08→22:02)
[2020-02-27 06:09] LABS: Potassium 3.6 mmol/L (3.5-5.1)
[2020-02-27 06:11] LABS: BUN/Creatinine Ratio 31.8; Calcium 8.9 mg/dL (8.5-10.1)
[2020-02-27] MEDS: FUROSEMIDE 20 MG/2 ML VIAL IV SCH ×2 (06:47→17:45)
[2020-02-27] MEDS: SILDENAFIL CITRATE 20 MG TAB PO SCH ×3 (07:56→19:59)
[2020-02-27] MEDS: guaiFENesin 200 MG/10 ML UD PO SCH ×4 (07:56→22:01)
[2020-02-27 09:00] VITALS: BP 141/69
[2020-02-27] MEDS: ASPirin-EC 81 mg tab PO SCH (10:37)
[2020-02-27] MEDS: POTASSIUM CHL 20 Meq TABLET PO SCH ×2 (10:37→22:02)
[2020-02-27] MEDS: ASCORBIC ACID 500 MG TAB PO SCH (10:38)
[2020-02-27] MEDS: FAMOTIDINE 20 MG TAB PO SCH (10:38)
[2020-02-27] MEDS: METOPROLOL TARTRATE 25 MG TAB PO SCH ×2 (10:38→22:02)
[2020-02-27] MEDS: NINTEDANIB PO SCH (10:39)
[2020-02-27] MEDS: ENOXAPARIN SOD 40 MG/0.4 ML SYRINGE SC SCH (10:39)
[2020-02-27 13:00] VITALS: BP 126/58
[2020-02-27 17:00] VITALS: BP 148/66
[2020-02-27] MEDS: TAMSULOSIN HYDROCHLORIDE 0.4 MG CAP PO SCH (17:45)
[2020-02-27 22:00] VITALS: BP 105/39
[2020-02-27] MEDS: LORazepam 0.5 MG TAB PO SCH (22:01)
[2020-02-27] MEDS: ATORVASTATIN 20 MG TAB PO SCH (22:02)
[2020-02-28] MEDS: PIPERACILLIN-TAZOB 3.375GM 100 ML IV SCH ×3 (01:45→19:38)
[2020-02-28] MEDS: ALBUTEROL SULF 2.5 MG/0.5ML(0.5%) NEB SOLN NEB SCH ×6 (02:29→21:44)
[2020-02-28] MEDS: IPRATROPIUM BROM 0.5 MG/2.5ML INH SOL NEB SCH ×6 (02:29→21:44)
[2020-02-28 04:55] VITALS: BP 130/62
[2020-02-28] MEDS: FUROSEMIDE 20 MG/2 ML VIAL IV SCH ×2 (05:26→17:43)
[2020-02-28] MEDS: methylPREDNISolone SOD SUCC 125 MG/2 ML VL IV SCH ×3 (05:26→21:55)
[2020-02-28] MEDS ORDERED: METOPROLOL TARTRATE 1MG/1ML-5ML VIAL IV PRN (05:45)
[2020-02-28 06:29] LABS: Basophils # (auto) 0 10 ^3/uL (0-0.2); Basophils % (auto) 0.1 % (0.0-2.0); Eosinophils # (auto) 0 10 ^3/uL (0-0.8); Hematocrit 39.7 % (41.0-53.0); Hemoglobin 13.8 g/dL (13.5-17.5); Lymphocytes # (auto) 0.3 10 ^3/uL (0.4-5.4); Lymphocytes % (auto) 4.1 % (10.0-50.0); Mean Corpuscular Hemoglobin 33.1 pg (28.0-32.0); Mean Corpuscular Hgb Conc. 34.8 g/dL (32.0-36.0); Mean Corpuscular Volume 95.1 fL (80.0-100.0); Monocytes # (auto) 0.3 10 ^3/uL (0-1.3); Monocytes % (auto) 3.6 % (0.0-12.0); Neutrophils # (auto) 7.9 10 ^3/uL (1.6-8.6); Neutrophils % (auto) 92.2 % (37.0-80.0); Nucleated Red Blood Cells % 0.1 %; Platelet Count (auto) 123 10^3/uL (140-450); Red Blood Cells 4.18 10^6/uL (4.5-5.90); Red Cell Distribution Width 15.8 % (11.8-14.3); White Blood Cell 8.5 10^3/uL (4.4-10.8)
[2020-02-28 06:45] LABS: Calcium 8.4 mg/dL (8.5-10.1)
[2020-02-28 06:47] LABS: BUN/Creatinine Ratio 34.6
[2020-02-28 07:13] VITALS: BP 119/63
[2020-02-28] MEDS: guaiFENesin 200 MG/10 ML UD PO SCH ×4 (07:55→21:55)
[2020-02-28] MEDS: SILDENAFIL CITRATE 20 MG TAB PO SCH ×3 (07:55→19:37)
[2020-02-28 09:00] VITALS: BP 95/59
[2020-02-28] MEDS: ASCORBIC ACID 500 MG TAB PO SCH (09:30)
[2020-02-28] MEDS: FAMOTIDINE 20 MG TAB PO SCH (09:30)
[2020-02-28] MEDS: NINTEDANIB PO SCH (09:30)
[2020-02-28] MEDS: POTASSIUM CHL 20 Meq TABLET PO SCH ×2 (09:31→21:54)
[2020-02-28] MEDS: ASPirin-EC 81 mg tab PO SCH (09:31)
[2020-02-28] MEDS: ENOXAPARIN SOD 40 MG/0.4 ML SYRINGE SC SCH (09:31)
[2020-02-28] MEDS: METOPROLOL TARTRATE 25 MG TAB PO SCH ×2 (09:33→21:55)
[2020-02-28 13:00] VITALS: BP 109/66
[2020-02-28 17:00] VITALS: BP 125/67
[2020-02-28] MEDS: TAMSULOSIN HYDROCHLORIDE 0.4 MG CAP PO SCH (17:42)
[2020-02-28] MEDS: LORazepam 0.5 MG TAB PO SCH (21:53)
[2020-02-28] MEDS: ATORVASTATIN 20 MG TAB PO SCH (21:54)
[2020-02-28 22:12] VITALS: BP 120/60
[2020-02-29] MEDS: PIPERACILLIN-TAZOB 3.375GM 100 ML IV SCH ×3 (01:32→14:28)
[2020-02-29] MEDS: ALBUTEROL SULF 2.5 MG/0.5ML(0.5%) NEB SOLN NEB SCH ×6 (02:19→23:03)
[2020-02-29] MEDS: IPRATROPIUM BROM 0.5 MG/2.5ML INH SOL NEB SCH ×6 (02:19→23:03)
[2020-02-29 05:19] VITALS: BP 146/75
[2020-02-29 05:46] LABS: Basophils # (auto) 0 10 ^3/uL (0-0.2); Eosinophils # (auto) 0 10 ^3/uL (0-0.8); Hematocrit 37.7 % (41.0-53.0); Hemoglobin 13.1 g/dL (13.5-17.5); Lymphocytes # (auto) 0.3 10 ^3/uL (0.4-5.4); Lymphocytes % (auto) 3.8 % (10.0-50.0); Mean Corpuscular Hemoglobin 33.2 pg (28.0-32.0); Mean Corpuscular Hgb Conc. 34.7 g/dL (32.0-36.0); Mean Corpuscular Volume 95.6 fL (80.0-100.0); Monocytes # (auto) 0.3 10 ^3/uL (0-1.3); Monocytes % (auto) 3.5 % (0.0-12.0); Neutrophils # (auto) 7.7 10 ^3/uL (1.6-8.6); Neutrophils % (auto) 92.7 % (37.0-80.0); Nucleated Red Blood Cells % 0.1 %; Platelet Count (auto) 115 10^3/uL (140-450); Red Blood Cells 3.94 10^6/uL (4.5-5.90); Red Cell Distribution Width 15.5 % (11.8-14.3); White Blood Cell 8.3 10^3/uL (4.4-10.8)
[2020-02-29 05:57] LABS: Calcium 8.5 mg/dL (8.5-10.1)
[2020-02-29] MEDS: FUROSEMIDE 20 MG/2 ML VIAL IV SCH (06:00)
[2020-02-29] MEDS: methylPREDNISolone SOD SUCC 125 MG/2 ML VL IV SCH ×2 (06:01→14:27)
[2020-02-29] MEDS ORDERED: ADENOSINE 81 MG in GIVE UN-DILUTED 0 ML IV STA (08:19)
[2020-02-29 09:00] VITALS: BP 155/73
[2020-02-29 09:10] VITALS: BP 137/72
[2020-02-29] MEDS: FAMOTIDINE 20 MG TAB PO SCH (10:29)
[2020-02-29] MEDS: SILDENAFIL CITRATE 20 MG TAB PO SCH ×3 (10:29→19:48)
[2020-02-29] MEDS: guaiFENesin 200 MG/10 ML UD PO SCH ×4 (10:29→21:48)
[2020-02-29] MEDS: ENOXAPARIN SOD 40 MG/0.4 ML SYRINGE SC SCH (10:30)
[2020-02-29] MEDS: ASCORBIC ACID 500 MG TAB PO SCH (10:30)
[2020-02-29] MEDS: METOPROLOL TARTRATE 25 MG TAB PO SCH ×2 (10:31→21:48)
[2020-02-29] MEDS: NINTEDANIB PO SCH (10:32)
[2020-02-29] MEDS: POTASSIUM CHL 20 Meq TABLET PO SCH (10:33)
[2020-02-29] MEDS: ASPirin-EC 81 mg tab PO SCH (10:43)
[2020-02-29 13:00] VITALS: BP 137/73
[2020-02-29] MEDS ORDERED: levoFLOXacin 250 MG TAB PO ONE (14:45)
[2020-02-29] MEDS ORDERED: FLORASTOR (S. BOULARDII) 250 MG CAP PO ONE (14:55)
[2020-02-29 16:27] VITALS: BP_SYST 100; BP_SYST 106; BP_SYST 145; BP_DIAS 60; BP_DIAS 70; BP_DIAS 71
[2020-02-29] MEDS: TAMSULOSIN HYDROCHLORIDE 0.4 MG CAP PO SCH (17:31)
[2020-02-29 21:16] VITALS: BP 123/59
[2020-02-29] MEDS: ATORVASTATIN 20 MG TAB PO SCH (21:48)
[2020-02-29] MEDS: LORazepam 0.5 MG TAB PO SCH (21:48)
[2020-02-29] MEDS: methylPREDNISolone SOD SUCC 40 MG/ML VL IV SCH (21:48)
[2020-03-01] MEDS: ALBUTEROL SULF 2.5 MG/0.5ML(0.5%) NEB SOLN NEB SCH ×6 (02:21→23:08)
[2020-03-01] MEDS: IPRATROPIUM BROM 0.5 MG/2.5ML INH SOL NEB SCH ×6 (02:21→23:08)
[2020-03-01 04:51] VITALS: BP 118/46
[2020-03-01 06:47] LABS: Hematocrit 37.8 % (41.0-53.0); Hemoglobin 13.1 g/dL (13.5-17.5)
[2020-03-01 06:57] LABS: Magnesium 2.3 mg/dL (1.6-2.6); Potassium 3.8 mmol/L (3.5-5.1)
[2020-03-01] MEDS: SILDENAFIL CITRATE 20 MG TAB PO SCH ×3 (08:46→20:06)
[2020-03-01] MEDS: guaiFENesin 200 MG/10 ML UD PO SCH ×4 (08:47→21:30)
[2020-03-01 09:00] VITALS: BP 135/62
[2020-03-01] MEDS: FAMOTIDINE 20 MG TAB PO SCH (10:56)
[2020-03-01] MEDS: ASPirin-EC 81 mg tab PO SCH (10:57)
[2020-03-01] MEDS: POTASSIUM CHL 20 Meq TABLET PO SCH (10:57)
[2020-03-01] MEDS: FLORASTOR (S. BOULARDII) 250 MG CAP PO SCH (10:57)
[2020-03-01] MEDS: ASCORBIC ACID 500 MG TAB PO SCH (10:57)
[2020-03-01] MEDS: METOPROLOL TARTRATE 25 MG TAB PO SCH ×2 (10:58→21:31)
[2020-03-01] MEDS: ENOXAPARIN SOD 40 MG/0.4 ML SYRINGE SC SCH (11:00)
[2020-03-01] MEDS: methylPREDNISolone SOD SUCC 40 MG/ML VL IV SCH ×2 (11:00→21:31)
[2020-03-01] MEDS: NINTEDANIB PO SCH (11:00)
[2020-03-01] MEDS: levoFLOXacin 250 MG TAB PO SCH (11:03)
[2020-03-01] MEDS: FUROSEMIDE 40 MG TAB PO SCH (11:04)
[2020-03-01 13:00] VITALS: BP 138/68
[2020-03-01 16:40] VITALS: BP 128/73
[2020-03-01] MEDS: TAMSULOSIN HYDROCHLORIDE 0.4 MG CAP PO SCH (17:54)
[2020-03-01] MEDS: LORazepam 0.5 MG TAB PO SCH (21:31)
[2020-03-01] MEDS: ATORVASTATIN 20 MG TAB PO SCH (21:31)
[2020-03-01 22:00] VITALS: BP 121/56
[2020-03-02] MEDS: ALBUTEROL SULF 2.5 MG/0.5ML(0.5%) NEB SOLN NEB SCH ×4 (02:46→13:58)
[2020-03-02] MEDS: IPRATROPIUM BROM 0.5 MG/2.5ML INH SOL NEB SCH ×4 (02:46→13:58)
[2020-03-02 05:00] VITALS: BP 140/68
[2020-03-02 08:30] VITALS: BP 141/68
[2020-03-02 09:17] VITALS: BP 140/68
[2020-03-02] MEDS: guaiFENesin 200 MG/10 ML UD PO SCH (10:28)
[2020-03-02] MEDS: FLORASTOR (S. BOULARDII) 250 MG CAP PO SCH (10:29)
[2020-03-02] MEDS: ASPirin-EC 81 mg tab PO SCH (10:29)
[2020-03-02] MEDS: FAMOTIDINE 20 MG TAB PO SCH (10:30)
[2020-03-02] MEDS: ASCORBIC ACID 500 MG TAB PO SCH (10:31)
[2020-03-02] MEDS: SILDENAFIL CITRATE 20 MG TAB PO SCH (10:31)
[2020-03-02] MEDS: FUROSEMIDE 40 MG TAB PO SCH (10:32)
[2020-03-02] MEDS: POTASSIUM CHL 20 Meq TABLET PO SCH (10:33)
[2020-03-02] MEDS: METOPROLOL TARTRATE 25 MG TAB PO SCH (10:34)
[2020-03-02] MEDS: NINTEDANIB PO SCH (10:35)
[2020-03-02] MEDS: methylPREDNISolone SOD SUCC 40 MG/ML VL IV SCH (10:35)
[2020-03-02] MEDS: ENOXAPARIN SOD 40 MG/0.4 ML SYRINGE SC SCH (10:36)
[2020-03-02] MEDS ORDERED: SACC250C PO (10:51)
[2020-03-02] MEDS ORDERED: LEVO750T2 PO (10:51)
[2020-03-02] MEDS ORDERED: PANT40TA2 PO (10:51)
[2020-03-02] MEDS: levoFLOXacin 250 MG TAB PO SCH (10:52)
[2020-03-02 12:30] VITALS: BP 138/54
[2020-03-02 15:10] VITALS: BP 141/68
[2020-03-02] MEDS ORDERED: PRED20TA2 PO (15:49)
[2020-03-02] MEDS ORDERED: DAKINS HALF STR 0.25% (NaHypochlorite) 473 ML TOPICAL SOL TOP SCH (22:00)
== END 2020-03-02 16:40 | disposition home health service (06) | DRG 177 ==
LOC: EDBD 10:43 → ER 10:43 → EDUNIT# 10:43 → TELE 10:44 → TELE-WESTW 15:45 → ICU WEST 02-20 13:24 → TELE-WESTW 02-21 21:05
PROVIDERS: ADMIT Nurse Practitioner Acute Care; ATTEND Internal Medicine
PROC: B3101ZZ Fluoroscopy of Thoracic Aorta using Low Osmolar Contrast (ICD-10-PCS; principal; 2020-02-21)
PROC: 4A023N8 Measurement of Cardiac Sampling and Pressure, Bilateral, Percutaneous Approach (ICD-10-PCS; 2020-02-21)
PROC: B2111ZZ Fluoroscopy of Multiple Coronary Arteries using Low Osmolar Contrast (ICD-10-PCS; 2020-02-21)
PROC: B2151ZZ Fluoroscopy of Left Heart using Low Osmolar Contrast (ICD-10-PCS; 2020-02-21)
DX: J15.6 Pneumonia due to other Gram-negative bacteria (principal); I21.A1 Myocardial infarction type 2; I50.43 Acute on chronic combined systolic (congestive) and diastolic (congestive) heart failure; J96.21 Acute and chronic respiratory failure with hypoxia; N17.0 Acute kidney failure with tubular necrosis; J98.11 Atelectasis; E44.0 Moderate protein-calorie malnutrition; J44.1 Chronic obstructive pulmonary disease with (acute) exacerbation; J44.0 Chronic obstructive pulmonary disease with (acute) lower respiratory infection; I13.0 Hypertensive heart and chronic kidney disease with heart failure and stage 1 through stage 4 chronic kidney disease, or unspecified chronic kidney disease; J69.0 Pneumonitis due to inhalation of food and vomit; E87.6 Hypokalemia; E78.5 Hyperlipidemia, unspecified; J84.112 Idiopathic pulmonary fibrosis; N40.0 Benign prostatic hyperplasia without lower urinary tract symptoms; N18.9 Chronic kidney disease, unspecified; I27.20 Pulmonary hypertension, unspecified; K80.20 Calculus of gallbladder without cholecystitis without obstruction; I25.2 Old myocardial infarction; Z87.891 Personal history of nicotine dependence; Z03.818 Encounter for observation for suspected exposure to other biological agents ruled out; Z68.28 Body mass index [BMI] 28.0-28.9, adult; Z88.5 Allergy status to narcotic agent
CPT/HCPCS: 36415; 71045; 71275; 75605; 78452; 80048; 80053; 80061; 80202; 81001; 82728; 83036; 83605; 83615; 83735; 83880; 84132; 84443; 84484; 85014; 85018; 85025; 85379; 85384; 85610; 85652; 85730; 86141; 86850; 86900; 86901; 87040; 87070; 87205; 87804; 87880; 93005; 93017; 93306; 93460; 94640; 96365; 96366; 96375; 97116; 97163; 97530; 99152; 99153; 99291; C1751; G0378; J0153; J1450; J1956; J2250; J2543

== ENCOUNTER → 2020-03-08 | Outpatient (CLI) | payer MEDICARE ==
[~2020-03-08] VITALS: Ht 30.5 cm; Wt 90.3 kg
[~2020-03-08] MED LIST changes: +ALBU1AER4 IN; -AMLO5TAB15 PO; +APIX5TAB PO; -ASPI325T25 PO; -BENA20TA14 PO; -CARV3.1240 PO; +CHOL20007 PO; +CYANOCOBALAMIN (B-12) 1000 MCG/1 ML VIAL IM ONE; +CYANOCOBALAMIN (B-12) 1000 MCG/1 ML VIAL ONE; +FURO20TA3 PO; +FUROSEMIDE 100 MG/10ML VIAL IV ONE; +FUROSEMIDE 40 MG/4 ML VIAL ONE; -GABA300C10 PO; +HCTZ25T PO; +LEVO750T2 PO; +METO-169 PO; +NINT1CAP2 PO; +PANT40TA2 PO; +POTA10TA51 PO; +POTASSIUM CHL 20 Meq TABLET PO ONE; +PRED20TA2 PO; +SACC250C PO; +TAMS0.4C36 PO; -[UNRECOGNIZED DRUG - CODE] PO
[2020-03-08 10:50] VITALS: BP 148/70
--- NOTE | 2020-03-08 10:50 | NUR ---
Patient sent MD side with orders as entered. Patient AAOx4, on home O2 at 2LPM, in wheelchair.
--- NOTE | 2020-03-08 11:10 | NUR ---
Patient taken for chest xray.
--- NOTE | 2020-03-08 11:30 | NUR ---
Patient back from xray.
[2020-03-08 11:45] VITALS: BP 150/99
--- NOTE | 2020-03-08 11:45 | NUR ---
[facility] Discharge Instructions See e-MAR for any mediations given with this visit. Patient education given on disease process. Patient verbalized understanding. Previous labs reviewed. Patient discharged in stable condition with after care instructions and follow up appointment. Note Lasix IVP admin by Carter VEE. B12 IM L deltoid admin by Carter VEE. Potassium admin by Alem VEE. Labs drawn by Alem VEE. Vit D spray given by Dr Copeland and instructions on use given by Alem VEE.
[2020-03-08 15:59] LABS: Basophils # (auto) 0 10 ^3/uL (0-0.2); Basophils % (auto) 0.4 % (0.0-2.0); Eosinophils # (auto) 0.1 10 ^3/uL (0-0.8); Eosinophils % (auto) 0.6 % (0.0-7.0); Hematocrit 42.4 % (41.0-53.0); Lymphocytes # (auto) 0.6 10 ^3/uL (0.4-5.4); Lymphocytes % (auto) 5.7 % (10.0-50.0); Mean Corpuscular Hemoglobin 32.4 pg (28.0-32.0); Mean Corpuscular Volume 98.1 fL (80.0-100.0); Monocytes # (auto) 0.5 10 ^3/uL (0-1.3); Monocytes % (auto) 4.5 % (0.0-12.0); Neutrophils # (auto) 9.1 10 ^3/uL (1.6-8.6); Neutrophils % (auto) 88.8 % (37.0-80.0); Platelet Count (auto) 95 10^3/uL (140-450); Red Blood Cells 4.32 10^6/uL (4.5-5.90); White Blood Cell 10.3 10^3/uL (4.4-10.8)
[2020-03-08 16:21] LABS: Calcium 8.5 mg/dL (8.5-10.1); Magnesium 2.3 mg/dL (1.6-2.6); Potassium 3.5 mmol/L (3.5-5.1)
== END | disposition home or self-care (01) ==
LOC: Rad HDHVI 10:57
PROVIDERS: ATTEND Internal Medicine Cardiovascular Disease
DX: I13.0 Hypertensive heart and chronic kidney disease with heart failure and stage 1 through stage 4 chronic kidney disease, or unspecified chronic kidney disease (principal); I50.42 Chronic combined systolic (congestive) and diastolic (congestive) heart failure; N18.9 Chronic kidney disease, unspecified; I25.2 Old myocardial infarction; J96.10 Chronic respiratory failure, unspecified whether with hypoxia or hypercapnia; J44.9 Chronic obstructive pulmonary disease, unspecified; E44.0 Moderate protein-calorie malnutrition; E78.5 Hyperlipidemia, unspecified; Z87.891 Personal history of nicotine dependence
CPT/HCPCS: 36415; 71046; 80048; 83735; 83880; 85025; 96372; 96374; G0463; J1940; J3420

== ENCOUNTER 2020-03-26 03:38 | Inpatient (IN) | payer MEDICARE ==
[~2020-03-26] VITALS: Ht 182.9 cm; Wt 89.0 kg
[~2020-03-26 03:38] MED LIST changes: -CYANOCOBALAMIN (B-12) 1000 MCG/1 ML VIAL IM ONE; -CYANOCOBALAMIN (B-12) 1000 MCG/1 ML VIAL ONE; -FUROSEMIDE 100 MG/10ML VIAL IV ONE; -FUROSEMIDE 40 MG/4 ML VIAL ONE; -POTASSIUM CHL 20 Meq TABLET PO ONE
[2020-03-26] MEDS ORDERED: IPRATROPIUM BROM 0.5 MG/2.5ML INH SOL NEB ONE (05:15)
[2020-03-26] MEDS ORDERED: ALBUTEROL SULF 2.5 MG/0.5ML(0.5%) NEB SOLN NEB ONE (05:15)
[2020-03-26 06:19] LABS: Hemoglobin 13.1 g/dL (13.5-17.5); Mean Corpuscular Hgb Conc. 32.8 g/dL (32.0-36.0); Mean Corpuscular Volume 94.5 fL (80.0-100.0); Platelet Count (auto) 138 10^3/uL (140-450); Red Blood Cells 4.24 10^6/uL (4.5-5.90); White Blood Cell 6.8 10^3/uL (4.4-10.8)
[2020-03-26 06:28] LABS: Basophils % (manual) 0 (0.0-2.0); Blast Cells 0; Eosinophils % (manual) 0 (0-7); Metamyelocytes % 0; Myelocytes % 0; Promyelocytes % 0; Reactive Lymphocytes 0
[2020-03-26 06:33] LABS: BUN/Creatinine Ratio 20.6; Calcium 8.3 mg/dL (8.5-10.1); Magnesium 1.8 mg/dL (1.6-2.6); Potassium 4.3 mmol/L (3.5-5.1)
[2020-03-26 06:37] LABS: INR 1.09 (0.9-1.15); Partial Thromboplastin Time 30.9 sec (23.64-32.05)
[2020-03-26 06:39] LABS: Bilirubin, Total 0.7 mg/dL (0.2-1.0); Total Protein 6.8 g/dL (6.4-8.2)
[2020-03-26] MEDS ORDERED: ALBUTEROL SULF 2.5 MG/0.5ML(0.5%) NEB SOLN NEB PRN ×2 (06:45→09:45)
[2020-03-26] MEDS ORDERED: IPRATROPIUM BROM 0.5 MG/2.5ML INH SOL NEB PRN (06:45)
[2020-03-26 06:49] LABS: Band Neutrophils % (manual) 2; Lymphocytes % (manual) 8 (10.0-50.0); Monocytes % (manual) 12 (0-12)
[2020-03-26] MEDS ORDERED: SODIUM CHLORIDE 0.9% 1,000 ML IV SCH (06:57)
[2020-03-26] MEDS ORDERED: NITROGLYCERIN 0.4 MG SL TAB SL PRN (07:00)
[2020-03-26] MEDS ORDERED: DOCUSATE SOD 100 MG CAP PO PRN (07:00)
[2020-03-26] MEDS ORDERED: ACETAMINOPHEN 325 MG TAB PO PRN (07:00)
[2020-03-26] MEDS ORDERED: ONDANSETRON HCL 4 MG/2 ML VIAL IV PRN (07:00)
[2020-03-26] MEDS: DOXYCYCLINE 100MG/250ML 250 ML IV SCH ×2 (09:45→21:08)
[2020-03-26] MEDS ORDERED: FUROSEMIDE 20 MG TAB PO SCH (10:00)
[2020-03-26] MEDS: POTASSIUM CHL 20 Meq TABLET PO SCH (10:00)
[2020-03-26] MEDS: APIXABAN 5 MG TAB PO SCH ×2 (10:00→21:08)
[2020-03-26] MEDS: FUROSEMIDE 100 MG/10ML VIAL IV SCH (10:00)
[2020-03-26 10:30] VITALS: BP 149/87
[2020-03-26] MEDS: IPRATROPIUM BROM 0.5 MG/2.5ML INH SOL NEB SCH ×2 (12:17→18:44)
[2020-03-26] MEDS: ALBUTEROL SULF 2.5 MG/0.5ML(0.5%) NEB SOLN NEB SCH ×2 (12:17→18:44)
[2020-03-26] MEDS: PANTOPRAZOLE 40 MG TAB PO SCH (15:27)
[2020-03-26] MEDS: methylPREDNISolone SOD SUCC 125 MG/2 ML VL IV SCH (15:27)
[2020-03-26] MEDS: CHOLECALCIFEROL (VITD3) 1,000IU=25mCg TAB PO SCH (15:28)
[2020-03-26] MEDS: FLORASTOR (S. BOULARDII) 250 MG CAP PO SCH (15:31)
[2020-03-26 17:00] VITALS: BP 150/82
[2020-03-26] MEDS: HCTZ 25 MG TAB PO SCH (17:06)
[2020-03-26] MEDS: METOPROLOL SUCCINATE XL 50 MG TAB PO SCH (17:06)
[2020-03-26] MEDS: TAMSULOSIN HYDROCHLORIDE 0.4 MG CAP PO SCH (18:40)
[2020-03-26] MEDS: ATORVASTATIN 20 MG TAB PO SCH (21:08)
[2020-03-26 22:00] VITALS: BP 108/44
[2020-03-27] MEDS: IPRATROPIUM BROM 0.5 MG/2.5ML INH SOL NEB SCH ×4 (00:21→18:56)
[2020-03-27] MEDS: ALBUTEROL SULF 2.5 MG/0.5ML(0.5%) NEB SOLN NEB SCH ×4 (00:21→18:55)
[2020-03-27 04:55] VITALS: BP 134/66
[2020-03-27 05:51] LABS: Basophils # (auto) 0 10 ^3/uL (0-0.2); Basophils % (auto) 0.1 % (0.0-2.0); Eosinophils # (auto) 0 10 ^3/uL (0-0.8); Hematocrit 37.7 % (41.0-53.0); Hemoglobin 12.5 g/dL (13.5-17.5); Lymphocytes # (auto) 0.3 10 ^3/uL (0.4-5.4); Lymphocytes % (auto) 7.6 % (10.0-50.0); Mean Corpuscular Hemoglobin 31.6 pg (28.0-32.0); Mean Corpuscular Hgb Conc. 33.1 g/dL (32.0-36.0); Mean Corpuscular Volume 95.5 fL (80.0-100.0); Monocytes # (auto) 0.1 10 ^3/uL (0-1.3); Monocytes % (auto) 3.2 % (0.0-12.0); Neutrophils # (auto) 4.1 10 ^3/uL (1.6-8.6); Neutrophils % (auto) 89.1 % (37.0-80.0); Nucleated Red Blood Cells % 0.2 %; Platelet Count (auto) 125 10^3/uL (140-450); Red Blood Cells 3.94 10^6/uL (4.5-5.90); Red Cell Distribution Width 18.1 % (11.8-14.3); White Blood Cell 4.6 10^3/uL (4.4-10.8)
[2020-03-27 06:05] LABS: Potassium 4.3 mmol/L (3.5-5.1)
[2020-03-27 06:15] LABS: BUN/Creatinine Ratio 29.7; Calcium 8.9 mg/dL (8.5-10.1)
[2020-03-27 09:00] VITALS: BP 131/74
[2020-03-27] MEDS: APIXABAN 5 MG TAB PO SCH ×2 (10:00→21:24)
[2020-03-27] MEDS: methylPREDNISolone SOD SUCC 125 MG/2 ML VL IV SCH ×2 (10:17→17:50)
[2020-03-27] MEDS: FUROSEMIDE 100 MG/10ML VIAL IV SCH (10:17)
[2020-03-27] MEDS: METOPROLOL SUCCINATE XL 50 MG TAB PO SCH (10:18)
[2020-03-27] MEDS: PANTOPRAZOLE 40 MG TAB PO SCH (10:18)
[2020-03-27] MEDS: CHOLECALCIFEROL (VITD3) 1,000IU=25mCg TAB PO SCH (10:18)
[2020-03-27] MEDS: FLORASTOR (S. BOULARDII) 250 MG CAP PO SCH (10:18)
[2020-03-27] MEDS: POTASSIUM CHL 20 Meq TABLET PO SCH (10:18)
[2020-03-27] MEDS: HCTZ 25 MG TAB PO SCH (10:19)
[2020-03-27] MEDS: DOXYCYCLINE 100MG/250ML 250 ML IV SCH ×2 (10:43→21:24)
[2020-03-27 13:00] VITALS: BP 147/63
[2020-03-27 17:00] VITALS: BP_SYST 145; BP_SYST 147; BP_DIAS 63; BP_DIAS 67
[2020-03-27] MEDS: TAMSULOSIN HYDROCHLORIDE 0.4 MG CAP PO SCH (17:50)
[2020-03-27] MEDS: ATORVASTATIN 20 MG TAB PO SCH (21:24)
[2020-03-27 22:00] VITALS: BP 125/52
[2020-03-28] VITALS (8 sets, daily range): BP systolic 131–156; BP diastolic 63–90
[2020-03-28] MEDS: IPRATROPIUM BROM 0.5 MG/2.5ML INH SOL NEB SCH ×4 (00:34→19:39)
[2020-03-28] MEDS: ALBUTEROL SULF 2.5 MG/0.5ML(0.5%) NEB SOLN NEB SCH ×4 (00:34→19:39)
[2020-03-28] MEDS: methylPREDNISolone SOD SUCC 125 MG/2 ML VL IV SCH ×3 (02:00→17:28)
[2020-03-28 06:03] LABS: Basophils # (auto) 0 10 ^3/uL (0-0.2); Basophils % (auto) 0.1 % (0.0-2.0); Eosinophils # (auto) 0 10 ^3/uL (0-0.8); Hematocrit 38.6 % (41.0-53.0); Hemoglobin 12.9 g/dL (13.5-17.5); Lymphocytes # (auto) 0.4 10 ^3/uL (0.4-5.4); Lymphocytes % (auto) 5.1 % (10.0-50.0); Mean Corpuscular Hemoglobin 31.7 pg (28.0-32.0); Mean Corpuscular Hgb Conc. 33.4 g/dL (32.0-36.0); Mean Corpuscular Volume 94.9 fL (80.0-100.0); Monocytes # (auto) 0.2 10 ^3/uL (0-1.3); Monocytes % (auto) 2.2 % (0.0-12.0); Neutrophils # (auto) 8.1 10 ^3/uL (1.6-8.6); Neutrophils % (auto) 92.6 % (37.0-80.0); Platelet Count (auto) 134 10^3/uL (140-450); Red Blood Cells 4.07 10^6/uL (4.5-5.90); White Blood Cell 8.7 10^3/uL (4.4-10.8)
[2020-03-28 06:15] LABS: INR 1.09 (0.9-1.15); Partial Thromboplastin Time 27.3 sec (23.64-32.05)
[2020-03-28 06:18] LABS: Potassium 4.4 mmol/L (3.5-5.1)
[2020-03-28 06:21] LABS: Magnesium 2.4 mg/dL (1.6-2.6)
[2020-03-28 06:33] LABS: BUN/Creatinine Ratio 38.5; Calcium 8.9 mg/dL (8.5-10.1); Potassium 4.4 mmol/L (3.5-5.1)
[2020-03-28] MEDS: METOPROLOL SUCCINATE XL 50 MG TAB PO SCH (10:00)
[2020-03-28] MEDS: FLORASTOR (S. BOULARDII) 250 MG CAP PO SCH (10:00)
[2020-03-28] MEDS: POTASSIUM CHL 20 Meq TABLET PO SCH (10:00)
[2020-03-28] MEDS: PANTOPRAZOLE 40 MG TAB PO SCH (10:00)
[2020-03-28] MEDS: CHOLECALCIFEROL (VITD3) 1,000IU=25mCg TAB PO SCH (10:00)
[2020-03-28] MEDS: APIXABAN 5 MG TAB PO SCH (10:00)
[2020-03-28] MEDS: FUROSEMIDE 40 MG TAB PO SCH (10:00)
[2020-03-28] MEDS: DOXYCYCLINE 100MG/250ML 250 ML IV SCH (10:07)
[2020-03-28] MEDS ORDERED: IOHEXOL 350 MG/ML 100ML IJ ONE ×4 (11:37→14:04)
[2020-03-28] MEDS ORDERED: LIDOCAINE 2%HCL (LOCAL ANESTH.) INJ 20ML MDV ONE ×2 (11:37→12:10)
[2020-03-28] MEDS ORDERED: MIDAZOLAM HCL 1MG/1ML-2 ML VIAL ONE (12:10)
[2020-03-28] MEDS ORDERED: fentaNYL CITRATE 100 MCG/2 ML VL ONE (12:10)
[2020-03-28] MEDS ORDERED: SODIUM CHL 0.9% 50 ML ONE (12:10)
[2020-03-28] MEDS ORDERED: ANGIOMAX 250 MG VIAL IV ONE (12:10)
[2020-03-28] MEDS ORDERED: CLOPIDOGREL 300 MG TAB ONE (14:10)
[2020-03-28] MEDS ORDERED: METOPROLOL SUCCINATE XL 50 MG TAB PO ONE (15:00)
[2020-03-28] MEDS ORDERED: FUROSEMIDE 40 MG/4 ML VIAL IV ONE (15:00)
[2020-03-28] MEDS: TAMSULOSIN HYDROCHLORIDE 0.4 MG CAP PO SCH (17:28)
[2020-03-28] MEDS: ATORVASTATIN 20 MG TAB PO SCH (21:50)
[2020-03-28] MEDS: DOXYCYCLINE 100 MG TAB/CAP PO SCH (21:50)
[2020-03-29] MEDS: ALBUTEROL SULF 2.5 MG/0.5ML(0.5%) NEB SOLN NEB SCH ×4 (00:36→19:06)
[2020-03-29] MEDS: IPRATROPIUM BROM 0.5 MG/2.5ML INH SOL NEB SCH ×4 (00:36→19:06)
[2020-03-29] MEDS: methylPREDNISolone SOD SUCC 125 MG/2 ML VL IV SCH ×2 (02:22→09:32)
[2020-03-29 05:00] VITALS: BP 140/71
[2020-03-29 06:38] LABS: Calcium 8.8 mg/dL (8.5-10.1); Potassium 4.2 mmol/L (3.5-5.1)
[2020-03-29 09:00] VITALS: BP 140/70
[2020-03-29] MEDS: APIXABAN 2.5 MG TAB PO SCH (09:33)
[2020-03-29] MEDS: FLORASTOR (S. BOULARDII) 250 MG CAP PO SCH (09:34)
[2020-03-29] MEDS: POTASSIUM CHL 20 Meq TABLET PO SCH (09:34)
[2020-03-29] MEDS: FUROSEMIDE 40 MG TAB PO SCH (09:35)
[2020-03-29] MEDS: CLOPIDOGREL BISULFATE 75 MG TAB PO SCH (09:35)
[2020-03-29] MEDS: PANTOPRAZOLE 40 MG TAB PO SCH (09:36)
[2020-03-29] MEDS: METOPROLOL SUCCINATE XL 50 MG TAB PO SCH (09:37)
[2020-03-29] MEDS: CHOLECALCIFEROL (VITD3) 1,000IU=25mCg TAB PO SCH (09:38)
[2020-03-29] MEDS: DOXYCYCLINE 100 MG TAB/CAP PO SCH ×2 (09:38→21:54)
[2020-03-29 13:00] VITALS: BP 156/78
[2020-03-29 13:48] VITALS: BP 156/78
[2020-03-29 17:00] VITALS: BP 137/71
[2020-03-29] MEDS: TAMSULOSIN HYDROCHLORIDE 0.4 MG CAP PO SCH (17:35)
[2020-03-29] MEDS: methylPREDNISolone SOD SUCC 40 MG/ML VL IV SCH (21:54)
[2020-03-29] MEDS: ATORVASTATIN 20 MG TAB PO SCH (21:55)
[2020-03-29 22:14] VITALS: BP 122/59
[2020-03-30] MEDS: ALBUTEROL SULF 2.5 MG/0.5ML(0.5%) NEB SOLN NEB SCH ×3 (00:15→12:16)
[2020-03-30] MEDS: IPRATROPIUM BROM 0.5 MG/2.5ML INH SOL NEB SCH ×3 (00:15→12:16)
[2020-03-30 05:00] VITALS: BP 140/69
[2020-03-30 05:42] LABS: Basophils # (auto) 0 10 ^3/uL (0-0.2); Basophils % (auto) 0.1 % (0.0-2.0); Eosinophils # (auto) 0 10 ^3/uL (0-0.8); Hematocrit 37.1 % (41.0-53.0); Hemoglobin 12.6 g/dL (13.5-17.5); Lymphocytes # (auto) 0.4 10 ^3/uL (0.4-5.4); Lymphocytes % (auto) 3.8 % (10.0-50.0); Mean Corpuscular Hemoglobin 31.9 pg (28.0-32.0); Mean Corpuscular Hgb Conc. 33.8 g/dL (32.0-36.0); Mean Corpuscular Volume 94.4 fL (80.0-100.0); Monocytes # (auto) 0.8 10 ^3/uL (0-1.3); Monocytes % (auto) 7.7 % (0.0-12.0); Neutrophils # (auto) 8.6 10 ^3/uL (1.6-8.6); Neutrophils % (auto) 88.4 % (37.0-80.0); Platelet Count (auto) 131 10^3/uL (140-450); Red Blood Cells 3.93 10^6/uL (4.5-5.90); Red Cell Distribution Width 17.4 % (11.8-14.3); White Blood Cell 9.8 10^3/uL (4.4-10.8)
[2020-03-30 06:05] LABS: Calcium 8.8 mg/dL (8.5-10.1); Potassium 4.3 mmol/L (3.5-5.1)
[2020-03-30 06:08] LABS: BUN/Creatinine Ratio 47.4; Magnesium 2.2 mg/dL (1.6-2.6)
[2020-03-30 09:00] VITALS: BP 151/74
[2020-03-30] MEDS: POTASSIUM CHL 20 Meq TABLET PO SCH (09:23)
[2020-03-30] MEDS: METOPROLOL SUCCINATE XL 50 MG TAB PO SCH (09:23)
[2020-03-30] MEDS: CHOLECALCIFEROL (VITD3) 1,000IU=25mCg TAB PO SCH (09:23)
[2020-03-30] MEDS: methylPREDNISolone SOD SUCC 40 MG/ML VL IV SCH (09:24)
[2020-03-30] MEDS: FUROSEMIDE 40 MG TAB PO SCH (09:24)
[2020-03-30] MEDS: PANTOPRAZOLE 40 MG TAB PO SCH (09:24)
[2020-03-30] MEDS: DOXYCYCLINE 100 MG TAB/CAP PO SCH (09:24)
[2020-03-30] MEDS: APIXABAN 2.5 MG TAB PO SCH (09:24)
[2020-03-30] MEDS: FLORASTOR (S. BOULARDII) 250 MG CAP PO SCH (09:24)
[2020-03-30] MEDS: CLOPIDOGREL BISULFATE 75 MG TAB PO SCH (09:25)
[2020-03-30] MEDS ORDERED: APIX2.5T PO (11:37)
[2020-03-30] MEDS ORDERED: PANT40TA2 PO (11:37)
[2020-03-30] MEDS ORDERED: ATOR40TA52 PO (11:37)
[2020-03-30] MEDS ORDERED: CLOP75TA28 PO (11:37)
[2020-03-30] MEDS ORDERED: METO-169 PO (11:44)
[2020-03-30 13:00] VITALS: BP 153/81
[2020-03-30 13:53] VITALS: BP 151/74
== END 2020-03-30 16:35 | disposition home health service (06) | DRG 981 ==
LOC: EDBD 03:38 → ER 03:38 → TELE 03:39 → TELE-WESTW 10:14
PROVIDERS: ADMIT Hospitalist; ATTEND Internal Medicine
PROC: 02703ZZ Dilation of Coronary Artery, One Artery, Percutaneous Approach (ICD-10-PCS; principal; 2020-03-28)
PROC: B2111ZZ Fluoroscopy of Multiple Coronary Arteries using Low Osmolar Contrast (ICD-10-PCS; 2020-03-28)
DX: J96.21 Acute and chronic respiratory failure with hypoxia (principal); I50.33 Acute on chronic diastolic (congestive) heart failure; J44.1 Chronic obstructive pulmonary disease with (acute) exacerbation; J98.11 Atelectasis; E44.0 Moderate protein-calorie malnutrition; J44.0 Chronic obstructive pulmonary disease with (acute) lower respiratory infection; D68.59 Other primary thrombophilia; I11.0 Hypertensive heart disease with heart failure; J84.10 Pulmonary fibrosis, unspecified; E78.5 Hyperlipidemia, unspecified; I25.119 Atherosclerotic heart disease of native coronary artery with unspecified angina pectoris; N40.0 Benign prostatic hyperplasia without lower urinary tract symptoms; J20.9 Acute bronchitis, unspecified; I48.91 Unspecified atrial fibrillation; Z86.73 Personal history of transient ischemic attack (TIA), and cerebral infarction without residual deficits; Z87.01 Personal history of pneumonia (recurrent); Z90.49 Acquired absence of other specified parts of digestive tract; Z87.891 Personal history of nicotine dependence; I25.2 Old myocardial infarction; Z98.61 Coronary angioplasty status; Z68.25 Body mass index [BMI] 25.0-25.9, adult
CPT/HCPCS: 36415; 36600; 71045; 80048; 80053; 80061; 82805; 83605; 83735; 83880; 84132; 84484; 85007; 85025; 85027; 85610; 85730; 86850; 86900; 86901; 87040; 87081; 92920; 93005; 93454; 94640; 96360; 97116; 97163; 97530; 99152; 99153; C1874; G0378; J2250; J3490

== ENCOUNTER 2020-04-29 23:08 | Inpatient (IN) | payer MEDICARE ==
[~2020-04-29] VITALS: Ht 182.9 cm; Wt 81.4 kg
[~2020-04-29 23:08] MED LIST changes: +APIX2.5T PO; -APIX5TAB PO; +CLOP75TA28 PO; -HCTZ25T PO; -LEVO750T2 PO; -NINT1CAP2 PO; -PRED20TA2 PO; -SACC250C PO
[2020-04-30 00:08] LABS: Basophils # (auto) 0 10 ^3/uL (0-0.2); Basophils % (auto) 0.6 % (0.0-2.0); Eosinophils # (auto) 0.1 10 ^3/uL (0-0.8); Eosinophils % (auto) 1.4 % (0.0-7.0); Hematocrit 40.6 % (41.0-53.0); Hemoglobin 13.3 g/dL (13.5-17.5); Lymphocytes # (auto) 0.6 10 ^3/uL (0.4-5.4); Lymphocytes % (auto) 7.6 % (10.0-50.0); Mean Corpuscular Hemoglobin 30.5 pg (28.0-32.0); Mean Corpuscular Hgb Conc. 32.8 g/dL (32.0-36.0); Monocytes # (auto) 0.7 10 ^3/uL (0-1.3); Monocytes % (auto) 8.8 % (0.0-12.0); Neutrophils # (auto) 6.2 10 ^3/uL (1.6-8.6); Neutrophils % (auto) 81.6 % (37.0-80.0); Platelet Count (auto) 148 10^3/uL (140-450); Red Blood Cells 4.37 10^6/uL (4.5-5.90); Red Cell Distribution Width 18.6 % (11.8-14.3); White Blood Cell 7.6 10^3/uL (4.4-10.8)
[2020-04-30 00:23] LABS: INR 1.03 (0.9-1.15); Partial Thromboplastin Time 28.2 sec (23.64-32.05)
[2020-04-30 00:27] LABS: Alanine Aminotransferase 14 U/L (16-61); Albumin 2.5 g/dL (3.4-5.0); Anion Gap 7 (5-15); Aspartate Aminotransferase 16 U/L (15-37); BUN/Creatinine Ratio 22.9; Blood Urea Nitrogen 19 mg/dL (7-18); Calcium 8.8 mg/dL (8.5-10.1); Carbon Dioxide 29 mmol/L (21-32); Chloride 102 mmol/L (98-107); GFR African American 115 mL/min; GFR Non-African American 95 mL/min; Glucose 138 mg/dL (74-106); Potassium 3.9 mmol/L (3.5-5.1); Sodium 138 mmol/L (136-145)
[2020-04-30 00:42] LABS: Alkaline Phosphatase 94 U/L (45-117); Bilirubin, Total 0.4 mg/dL (0.2-1.0); Total Protein 7.3 g/dL (6.4-8.2)
[2020-04-30] MEDS ORDERED: FUROSEMIDE 40 MG/4 ML VIAL IV ONE (04:15)
[2020-04-30] MEDS ORDERED: ONDANSETRON HCL 4 MG/2 ML VIAL IV PRN (07:00)
[2020-04-30] MEDS ORDERED: NITROGLYCERIN 0.4 MG SL TAB SL PRN (07:00)
[2020-04-30] MEDS ORDERED: DOCUSATE SOD 100 MG CAP PO PRN (07:00)
[2020-04-30] MEDS ORDERED: ALBUTEROL SULF 2.5 MG/0.5ML(0.5%) NEB SOLN NEB PRN ×2 (07:00→15:30)
[2020-04-30] MEDS ORDERED: ACETAMINOPHEN 325 MG TAB PO PRN (07:00)
[2020-04-30 09:00] LABS: Basophils # (auto) 0.1 10 ^3/uL (0-0.2); Basophils % (auto) 1.1 % (0.0-2.0); Eosinophils # (auto) 0.2 10 ^3/uL (0-0.8); Eosinophils % (auto) 3.1 % (0.0-7.0); Hemoglobin 12.6 g/dL (13.5-17.5); Lymphocytes # (auto) 0.8 10 ^3/uL (0.4-5.4); Mean Corpuscular Hemoglobin 30.6 pg (28.0-32.0); Mean Corpuscular Volume 92.6 fL (80.0-100.0); Monocytes # (auto) 0.6 10 ^3/uL (0-1.3); Monocytes % (auto) 10.1 % (0.0-12.0); Neutrophils # (auto) 4.3 10 ^3/uL (1.6-8.6); Neutrophils % (auto) 71.7 % (37.0-80.0); Nucleated Red Blood Cells % 0.1 %; Platelet Count (auto) 137 10^3/uL (140-450); Red Cell Distribution Width 18.2 % (11.8-14.3)
[2020-04-30 09:16] LABS: Calcium 8.6 mg/dL (8.5-10.1); Potassium 3.5 mmol/L (3.5-5.1)
[2020-04-30 09:21] LABS: BUN/Creatinine Ratio 24.3
[2020-04-30] MEDS: METOPROLOL SUCCINATE XL 50 MG TAB PO SCH (10:00)
[2020-04-30] MEDS: APIXABAN 2.5 MG TAB PO SCH ×2 (10:15→21:10)
[2020-04-30] MEDS: POTASSIUM CHL 20 Meq TABLET PO SCH (10:15)
[2020-04-30] MEDS: PANTOPRAZOLE 40 MG TAB PO SCH (10:15)
--- NOTE | 2020-04-30 14:57 | NUR ---
RT NOTE: PT. ASSESSED FOR PRN BREATHING TX. PT. APPEARS SOB BUT HE STATES IT IS JUST BECAUSE HE JUST REPOSITIONED HIMSELF IN BED AND HE WILL BE OK SHORTLY. I OFFERED A PRN BREATHING TX. TO PT. BUT HE SAID HE WAS OK AND DIDN'T NEED THE BREATHING TX. PT. HR 67, RR 20, POX 93% ON 5L N/C. PT. ADVISED TO NOTIFY RN IF BREATHING TX. IS NEEDED.
[2020-04-30 16:35] VITALS: BP 138/68
[2020-04-30] MEDS ORDERED: levoFLOXacin 500MG 100 ML IV ONE (16:45)
[2020-04-30 17:00] VITALS: BP 127/70
[2020-04-30] MEDS: SPIRONOLACTONE 25 MG TAB PO SCH (18:07)
[2020-04-30] MEDS: Ensure HIGH Protein Chocolate 8oz Bottle PO SCH (18:08)
[2020-04-30] MEDS: TAMSULOSIN HYDROCHLORIDE 0.4 MG CAP PO SCH (18:08)
[2020-04-30] MEDS: ATORVASTATIN 20 MG TAB PO SCH (18:09)
[2020-04-30] MEDS: FUROSEMIDE 40 MG/4 ML VIAL IV SCH (18:13)
--- NOTE | 2020-04-30 19:15 | NUR ---
Opening note Assumed care of patient. Patient alert and orientated x4. No SOB or distress noted. Bed locked in lowest position. Side rails up x2. POC reviewed. Call light within reach. Will continue to monitor.
[2020-04-30] MEDS: ALBUTEROL SULF 2.5 MG/0.5ML(0.5%) NEB SOLN NEB SCH ×2 (19:20→23:38)
[2020-04-30] MEDS: IPRATROPIUM BROM 0.5 MG/2.5ML INH SOL NEB PRN ×2 (19:20→23:38)
[2020-04-30 21:49] VITALS: BP 119/66
[2020-05-01 05:00] VITALS: BP 116/77
[2020-05-01 06:10] LABS: Basophils # (auto) 0 10 ^3/uL (0-0.2); Basophils % (auto) 0.6 % (0.0-2.0); Eosinophils # (auto) 0.2 10 ^3/uL (0-0.8); Eosinophils % (auto) 3.6 % (0.0-7.0); Hematocrit 37.8 % (41.0-53.0); Hemoglobin 12.4 g/dL (13.5-17.5); Lymphocytes # (auto) 0.8 10 ^3/uL (0.4-5.4); Lymphocytes % (auto) 12.7 % (10.0-50.0); Mean Corpuscular Hemoglobin 30.3 pg (28.0-32.0); Mean Corpuscular Hgb Conc. 32.8 g/dL (32.0-36.0); Mean Corpuscular Volume 92.4 fL (80.0-100.0); Monocytes # (auto) 0.6 10 ^3/uL (0-1.3); Monocytes % (auto) 9.8 % (0.0-12.0); Neutrophils # (auto) 4.5 10 ^3/uL (1.6-8.6); Neutrophils % (auto) 73.3 % (37.0-80.0); Platelet Count (auto) 130 10^3/uL (140-450); Red Blood Cells 4.09 10^6/uL (4.5-5.90); Red Cell Distribution Width 17.9 % (11.8-14.3); White Blood Cell 6.1 10^3/uL (4.4-10.8)
[2020-05-01] MEDS: ALBUTEROL SULF 2.5 MG/0.5ML(0.5%) NEB SOLN NEB SCH ×3 (06:15→18:35)
[2020-05-01] MEDS: IPRATROPIUM BROM 0.5 MG/2.5ML INH SOL NEB PRN ×2 (06:15→11:07)
[2020-05-01 06:31] LABS: Potassium 3.6 mmol/L (3.5-5.1)
[2020-05-01 06:45] LABS: BUN/Creatinine Ratio 26.5; Calcium 8.7 mg/dL (8.5-10.1)
[2020-05-01] MEDS: FUROSEMIDE 40 MG/4 ML VIAL IV SCH ×2 (06:53→18:12)
[2020-05-01] MEDS: SPIRONOLACTONE 25 MG TAB PO SCH ×2 (06:53→18:13)
--- NOTE | 2020-05-01 07:01 | NUR ---
closing note endorsed care to day shift MARIUSZ Delgado
[2020-05-01 08:25] VITALS: BP 116/66
[2020-05-01 09:00] VITALS: BP 116/66
[2020-05-01] MEDS: Ensure HIGH Protein Chocolate 8oz Bottle PO SCH ×3 (09:51→18:13)
[2020-05-01] MEDS: levoFLOXacin 500MG 100 ML IV SCH (09:54)
[2020-05-01] MEDS: PANTOPRAZOLE 40 MG TAB PO SCH (09:55)
[2020-05-01] MEDS: APIXABAN 2.5 MG TAB PO SCH ×2 (09:55→21:03)
[2020-05-01] MEDS: POTASSIUM CHL 20 Meq TABLET PO SCH (09:55)
[2020-05-01] MEDS: METOPROLOL SUCCINATE XL 50 MG TAB PO SCH (09:56)
[2020-05-01] MEDS ORDERED: levoFLOXacin 250MG 50 ML IV SCH (10:00)
[2020-05-01 13:00] VITALS: BP 112/62
[2020-05-01 16:38] VITALS: BP 123/69
[2020-05-01] MEDS: TAMSULOSIN HYDROCHLORIDE 0.4 MG CAP PO SCH (18:13)
[2020-05-01] MEDS: ATORVASTATIN 20 MG TAB PO SCH (18:16)
--- NOTE | 2020-05-01 19:10 | NUR ---
Opening note Assumed care of patient. Patient alert and orientated x4. No sob or distress noted at this time. POC reviewed. No questions at this time. Bed locked in lowest position, side rails up x2. Call light within reach. Will continue to monitor.
[2020-05-01] MEDS: methylPREDNISolone SOD SUCC 40 MG/ML VL IV SCH (21:03)
[2020-05-01 22:00] VITALS: BP 105/47
--- NOTE | 2020-05-01 23:50 | NUR ---
Patient rounding Checked on patient, patients chest visibly rising. Patient is asleep at this time. NO distress noted. Call light within reach, Will continue to monitor
[2020-05-02] MEDS: ALBUTEROL SULF 2.5 MG/0.5ML(0.5%) NEB SOLN NEB SCH ×4 (00:27→19:22)
[2020-05-02] MEDS: IPRATROPIUM BROM 0.5 MG/2.5ML INH SOL NEB PRN ×4 (00:27→19:21)
--- NOTE | 2020-05-02 03:15 | NUR ---
Patient Rounding Patient sleeping in bed. chest visibly rising. No distress noted. Call light within reach. Will continue to monitor.
[2020-05-02 05:00] VITALS: BP 95/60
[2020-05-02] MEDS: methylPREDNISolone SOD SUCC 40 MG/ML VL IV SCH ×3 (06:05→21:20)
[2020-05-02] MEDS: SPIRONOLACTONE 25 MG TAB PO SCH ×2 (06:06→18:03)
[2020-05-02 06:23] LABS: Basophils # (auto) 0 10 ^3/uL (0-0.2); Basophils % (auto) 0.3 % (0.0-2.0); Eosinophils # (auto) 0 10 ^3/uL (0-0.8); Eosinophils % (auto) 0.1 % (0.0-7.0); Hematocrit 37.9 % (41.0-53.0); Hemoglobin 12.6 g/dL (13.5-17.5); Lymphocytes # (auto) 0.3 10 ^3/uL (0.4-5.4); Lymphocytes % (auto) 6.6 % (10.0-50.0); Mean Corpuscular Hemoglobin 30.6 pg (28.0-32.0); Mean Corpuscular Hgb Conc. 33.2 g/dL (32.0-36.0); Mean Corpuscular Volume 92.2 fL (80.0-100.0); Monocytes # (auto) 0.1 10 ^3/uL (0-1.3); Monocytes % (auto) 1.3 % (0.0-12.0); Neutrophils # (auto) 4.2 10 ^3/uL (1.6-8.6); Neutrophils % (auto) 91.7 % (37.0-80.0); Nucleated Red Blood Cells % 0.1 %; Platelet Count (auto) 132 10^3/uL (140-450); Red Blood Cells 4.11 10^6/uL (4.5-5.90); Red Cell Distribution Width 17.7 % (11.8-14.3); White Blood Cell 4.6 10^3/uL (4.4-10.8)
[2020-05-02] MEDS: FUROSEMIDE 40 MG/4 ML VIAL IV SCH ×2 (06:24→18:03)
--- NOTE | 2020-05-02 06:46 | NUR ---
Closing note Endorsed care to day shift RN Danny.
[2020-05-02 06:51] LABS: Chloride 101 mmol/L (98-107); Potassium 4.3 mmol/L (3.5-5.1); Sodium 137 mmol/L (136-145)
[2020-05-02 07:05] LABS: Anion Gap 5 (5-15); BUN/Creatinine Ratio 35.5; Blood Urea Nitrogen 27 mg/dL (7-18); Calcium 9.2 mg/dL (8.5-10.1); Carbon Dioxide 31 mmol/L (21-32); GFR African American 127 mL/min; GFR Non-African American 105 mL/min; Glucose 170 mg/dL (74-106)
[2020-05-02 08:00] VITALS: BP 111/66
[2020-05-02 08:30] VITALS: BP 136/88
[2020-05-02] MEDS: Ensure HIGH Protein Chocolate 8oz Bottle PO SCH ×3 (09:17→18:03)
[2020-05-02] MEDS: levoFLOXacin 500MG 100 ML IV SCH (09:19)
[2020-05-02] MEDS: POTASSIUM CHL 20 Meq TABLET PO SCH (09:20)
[2020-05-02] MEDS: APIXABAN 2.5 MG TAB PO SCH ×2 (09:20→21:21)
[2020-05-02] MEDS: PANTOPRAZOLE 40 MG TAB PO SCH (09:21)
[2020-05-02] MEDS: METOPROLOL SUCCINATE XL 50 MG TAB PO SCH (09:22)
[2020-05-02 12:00] VITALS: BP 126/68
[2020-05-02 17:00] VITALS: BP 130/75
[2020-05-02] MEDS: ATORVASTATIN 20 MG TAB PO SCH (18:04)
[2020-05-02] MEDS: TAMSULOSIN HYDROCHLORIDE 0.4 MG CAP PO SCH (18:04)
--- NOTE | 2020-05-02 19:03 | NUR ---
Opening note Assumed care of patient. Patient alert and orientated x4. No SOB or distress noted at this time. Bed locked in lowest position. Side rails up x2. POC reviewed. Patient has no questions at this time. Call light within reach. Will continue to monitor.
[2020-05-02 22:03] VITALS: BP 103/70
[2020-05-03] MEDS: ALBUTEROL SULF 2.5 MG/0.5ML(0.5%) NEB SOLN NEB SCH ×3 (00:39→11:27)
[2020-05-03] MEDS: IPRATROPIUM BROM 0.5 MG/2.5ML INH SOL NEB PRN (00:39)
[2020-05-03 05:00] VITALS: BP 98/42
[2020-05-03] MEDS ORDERED: SODIUM CHLORIDE 0.9 % NEB SOLN 3ML NEB ONE ×2 (05:35→09:06)
[2020-05-03] MEDS: FUROSEMIDE 40 MG/4 ML VIAL IV SCH (06:06)
[2020-05-03] MEDS: SPIRONOLACTONE 25 MG TAB PO SCH (06:16)
[2020-05-03] MEDS: methylPREDNISolone SOD SUCC 40 MG/ML VL IV SCH ×2 (06:16→14:00)
--- NOTE | 2020-05-03 06:58 | NUR ---
Closing note Endorsed care to day shift RN Danny.
[2020-05-03 08:00] VITALS: BP 122/69
[2020-05-03] MEDS: Ensure HIGH Protein Chocolate 8oz Bottle PO SCH ×2 (09:52→12:28)
[2020-05-03] MEDS: APIXABAN 2.5 MG TAB PO SCH (09:57)
[2020-05-03] MEDS: PANTOPRAZOLE 40 MG TAB PO SCH (09:57)
[2020-05-03] MEDS: levoFLOXacin 500MG 100 ML IV SCH (09:57)
[2020-05-03] MEDS: POTASSIUM CHL 20 Meq TABLET PO SCH (09:57)
[2020-05-03] MEDS: METOPROLOL SUCCINATE XL 50 MG TAB PO SCH (09:58)
[2020-05-03] MEDS ORDERED: OPTISON 3ml Vial for INJ IV ONE (10:38)
[2020-05-03 12:00] VITALS: BP 109/59
[2020-05-03 12:36] VITALS: BP 109/59
--- NOTE | 2020-05-03 16:20 | NUR ---
PATIENT DISCHARGED HOME WITH FAMILY. ALL IV ACCESS DISCONTINUED. PATIENT NON-TELEMETRY. ALL DISCHARGE INSTRUCTIONS GIVEN. ALL DISCHARGE PAPERWORK SIGNED
== END 2020-05-03 16:35 | disposition home or self-care (01) | DRG 196 ==
LOC: ER 23:08 → EDBD 23:08 → OVERFLOW 23:09 → EAST 04-30 14:38
PROVIDERS: ADMIT Hospitalist; ATTEND Internal Medicine Cardiovascular Disease
DX: J84.112 Idiopathic pulmonary fibrosis (principal); J96.21 Acute and chronic respiratory failure with hypoxia; I13.0 Hypertensive heart and chronic kidney disease with heart failure and stage 1 through stage 4 chronic kidney disease, or unspecified chronic kidney disease; J98.11 Atelectasis; E44.0 Moderate protein-calorie malnutrition; I50.32 Chronic diastolic (congestive) heart failure; I71.9 Aortic aneurysm of unspecified site, without rupture; R73.9 Hyperglycemia, unspecified; J44.9 Chronic obstructive pulmonary disease, unspecified; N18.9 Chronic kidney disease, unspecified; E78.5 Hyperlipidemia, unspecified; N40.0 Benign prostatic hyperplasia without lower urinary tract symptoms; I25.10 Atherosclerotic heart disease of native coronary artery without angina pectoris; Z79.01 Long term (current) use of anticoagulants; Z79.899 Other long term (current) drug therapy; Z83.3 Family history of diabetes mellitus; Z95.5 Presence of coronary angioplasty implant and graft; Z87.01 Personal history of pneumonia (recurrent); I25.2 Old myocardial infarction
CPT/HCPCS: 36415; 36600; 71045; 71046; 80048; 80053; 80061; 82805; 83036; 83735; 83880; 84443; 84484; 85025; 85610; 85730; 87070; 87081; 87205; 93005; 93306; 94640; 96374; G0378; J1956; Q9956